=== PATIENT | female | born 1985 | race Caucasian/White ===

== ENCOUNTER 2017-08-12 20:46 | Emergency (ER) | payer OTHER ==
[2017-08-12 20:51] VITALS: BP 126/84; PULSE 71; TEMP 98.4; BMI 26.5
--- NOTE | 2017-08-12 21:55 | PDOC ---
History of Present Illness - General Chief Complaint: Laceration Stated Complaint: LEFT HAND LACERATION Time Seen by Provider: 08/12/17 21:28 History Source: Patient Exam Limitations: No Limitations - History of Present Illness Initial Comments: 08/12/17 21:49 This is a 32-year-old woman without past medical history of presents to the emergency room with 2 cm lactic to base of left thumb on the dorsal side. Patient states she got locked in the kitchen of her [employer] and while trying to open the door with a kitchen knife it slipped and accidentally cut her thumb. She wash her hands immediately after the injury. She states her last tetanus shot was 3 years ago with her primary doctor. Past History - Past Medical History Allergies/Adverse Reactions: Allergies Allergy/AdvReac Type Severity Reaction Status Date / Time No Known Allergies Allergy Verified 08/12/17 20:50 Home Medications: Ambulatory Orders Levothyroxine [Synthroid -] 175 mcg PO DAILY 09/17/12 Levothyroxine [Synthroid -] 175 mcg PO DAILY@0700 tablet 06/25/16 GI Disorders: Yes Thyroid Disease: Yes Other medical history: hht disease - Surgical History Cholecystectomy: Yes (04/30) - Reproductive History Spontaneous : 2 - Suicide/Smoking/Psychosocial Hx Smoking Status: No Smoking History: Never smoked Have you smoked in the past 12 months: No Number of Cigarettes Smoked Daily: 0 Hx Alcohol Use: No Drug/Substance Use Hx: No Substance Use Type: None *Physical Exam - Vital Signs Last Vital Signs Temp Pulse Resp BP Pulse Ox 98.4 F 71 18 126/84 99 08/12/17 20:48 08/12/17 20:48 08/12/17 20:48 08/12/17 20:48 08/12/17 20:48 Procedures - Laceration/Wound Repair Left Proximal Dorsal 1st digit Wound Length: to 2.5 cm Wound Explored: clean Wound's Depth, Shape: superficial, linear Irrigated w/ Saline: No Betadine Prep: Yes Anesthesia: 2% Lidocaine Amount of Anesthetic (ccs): 3 Wound Repaired With: Sutures Suture Size/Type: 5:0 Number of Sutures: 2 Layer Closure: No Sterile Dressing Applied: No Splint Applied: No Sling Applied: No Medical Decision Making - Medical Decision Making 08/12/17 21:52 This is a 32-year-old woman without past medical history of presents to the emergency room with 2 cm lactic to base of left thumb on the dorsal side. Patient states she got locked in the kitchen of her [employer] and while trying to open the door with a kitchen knife it slipped and accidentally cut her thumb. She wash her hands immediately after the injury. She states her last tetanus shot was 3 years ago with her primary doctor. 2 cm linear laceration to the dorsum of the base of left thumb present. The wound is superficial. No obvious debris was within the wound. Irrigated by while having patient wash her hands. Area prepped and anesthetized with 3 mL of 2% lidocaine. 2 sutures placed which obtained well approximated wound edges and wound closure. Patient is instructed to return to have sutures removed in one week. Patient instructed to return to care for any signs and symptoms of infection including erythema, fevers, discharge, increased pain at the site. Diagnosis-laceration *DC/Admit/Observation/Transfer Diagnosis at time of Disposition: Laceration - Discharge Dispostion Disposition: HOME Condition at time of disposition: Stable Admit: No - Referrals Referrals: Joshua Barlow MD [Primary Care Provider] - - Patient Instructions Printed Discharge Instructions: DI for Laceration Repair Additional Instructions: Keep wounds dry for the next 24 hours. After the first 24 hours she may clean the wound by gently rubbing and patting dry. You may use Neosporin to prevent infection. Apply a thin layer to wounds twice a day and as needed. Return to have sutures removed in one week. Return to emergency department for any fever, redness to laceration site, drainage or discharge from laceration site, increased pain, or any other concerns. Thank you very much for choosing us to provide your emergent healthcare needs.
== END 2017-08-12 21:57 | disposition home or self-care (01) ==
LOC: JERFT 20:46
PROC: 0HQGXZZ Repair Left Hand Skin, External Approach (ICD-10-PCS; principal; 2017-08-12)
DX: S61.012A Laceration without foreign body of left thumb without damage to nail, initial encounter (principal); W26.0XXA Contact with knife, initial encounter; Y93.89 Activity, other specified; Y92.22 Religious institution as the place of occurrence of the external cause; Y99.8 Other external cause status
CPT/HCPCS: 12001-25; 99281-25

== ENCOUNTER 2017-10-17 18:19 | Emergency (ER) | payer OTHER ==
[2017-10-17 18:37] VITALS: BP 123/80; PULSE 68; TEMP 98; BMI 25.8
--- NOTE | 2017-10-17 18:52 | PDOC ---
Rapid Medical Evaluation Chief Complaint: Pain, Acute Time Seen by Provider: 10/17/17 18:47 Medical Evaluation: Allergies Allergy/AdvReac Type Severity Reaction Status Date / Time No Known Allergies Allergy Verified 10/17/17 18:35 Vital Signs Temp Pulse Resp BP Pulse Ox 98 F 68 18 123/80 100 10/17/17 18:35 10/17/17 18:35 10/17/17 18:35 10/17/17 18:35 10/17/17 18:35 10/17/17 18:48 Pt presents to the ED: back pain and nausea Pt on brief exam: pt with nikki cva, VSS Pt ordered for : ua, ucx, hcg Pt to proceed to the ED Discharge Disposition - Diagnosis Back pain - Referrals - Patient Instructions - Post Discharge Activity
[2017-10-17 19:28] LABS: URINE APPEARANCE CLEAR; URINE BILIRUBIN NEGATIVE (NEGATIVE); URINE BLOOD 1+ (NEGATIVE); URINE COLOR YELLOW; URINE GLUCOSE (UA) NEGATIVE (NEGATIVE); URINE KETONE NEGATIVE (NEGATIVE); URINE LEUK ESTERASE NEGATIVE (NEGATIVE); URINE NITRITE NEGATIVE (NEGATIVE); URINE PROTEIN NEGATIVE (NEGATIVE)
[2017-10-17 19:39] LABS: URINE MUCUS RARE; URINE RBC 5 /hpf (0-3); URINE WBC <1 /hpf (3-5)
[2017-10-17 20:55] LABS: URINE LEUK ESTERASE Negative (NEGATIVE)
--- NOTE | 2017-10-17 21:42 | PDOC ---
History of Present Illness - General History Source: Patient - History of Present Illness Initial Comments: 10/17/17 22:19 The patient is a 32 year old female, with a significant past medical history of UTI (last 13 years ago), stroke (1 year ago), hypothyroidism (taking Synthroid s /p radiation therapy for hyperthyroidism), two small uterine fibroids, ovarian cysts, and s/p loop electrical excision procedure (LEEP), who presents to the emergency department with one week of lower back pain that radiates to her abdomen bilaterally, as well as pain to her suprapubic region and abdominal bloating. She states she became very nauseous today while at work and developed chills, but denies vomiting. The patient states she has not taken anything for pain and denies experiencing this pain in the past. She states her abdomen feels like there is air inside. Secondarily, she states she has low urinary output at baseline (urinates 2x in the day despite consuming large volumes of fluid). The patient states she was referred to a renal doctor, but denies follow -up with the specialist. LMP: 1 week ago (patient states she is not sexually active) She denies chest pain, shortness of breath, headache and dizziness. She denies fever, vomit, diarrhea and constipation. She denies dysuria, frequency, urgency and hematuria. Allergies: NKDA Past surgical history: cholecystectomy Social history: Pt denies toxic habits PCP: Dr. Joshua Barlow <Tresa Mason - Last Filed: 10/18/17 02:03> <Yannick Antonio - Last Filed: 10/18/17 02:34> - General Chief Complaint: Pain, Acute Stated Complaint: PAIN, ACUTE Time Seen by Provider: 10/17/17 18:47 Past History <Tresa Mason - Last Filed: 10/18/17 02:03> - Past Medical History COPD: No GI Disorders: Yes Thyroid Disease: Yes - Surgical History Cholecystectomy: Yes (04/30) - Reproductive History Spontaneous : 2 - Suicide/Smoking/Psychosocial Hx Smoking Status: No Smoking History: Never smoked Have you smoked in the past 12 months: No Number of Cigarettes Smoked Daily: 0 Information on smoking cessation initiated: No Hx Alcohol Use: No Drug/Substance Use Hx: No Substance Use Type: None <Yannick Antonio - Last Filed: 10/18/17 02:34> - Past Medical History Allergies/Adverse Reactions: Allergies Allergy/AdvReac Type Severity Reaction Status Date / Time No Known Allergies Allergy Verified 10/17/17 18:35 Home Medications: Ambulatory Orders Levothyroxine [Synthroid -] 175 mcg PO DAILY@0700 tablet 06/25/16 Review of Systems - Review of Systems Able to Perform ROS?: Yes Comments:: 10/17/17 22:20 CONSTITUTIONAL: (+) chills, No fever, no fatigue EYES: No visual changes ENT: No ear pain, no sore throat CARDIOVASCULAR: No chest pain, no palpitations RESPIRATORY: No cough, no SOB GI: (+) bilateral abdominal pain with increased prominence to suprapubic region , nausea, no vomiting, no constipation, no diarrhea GENITOURINARY: No dysuria, no frequency, no hematuria MUSKULOSKELETAL: No backpain, no joint pain, no myalgias SKIN: No rash NEURO: No headache <Tresa Mason - Last Filed: 10/18/17 02:03> *Physical Exam - Vital Signs Last Vital Signs Temp Pulse Resp BP Pulse Ox 98 F 68 18 123/80 100 10/17/17 18:35 10/17/17 18:35 10/17/17 18:35 10/17/17 18:35 10/17/17 18:35 - Physical Exam Comments: 10/17/17 22:21 CONSTITUTIONAL: (+) Awake, Alert, and Oriented x3. in no apparent distress HEAD: Normocephalic; atraumatic EYES: PERRL; EOM intact ENMT: External appears normal; normal oropharynx NECK: Supple; non-tender; no cervical lymphadenopathy CARD: Normal S1, S2; no murmurs, rubs, or gallops RESP: Normal chest excursion with respiration; breath sounds clear and equal bilaterally; no wheezes, rhonchi, or rales ABD: Soft, non-distended; +Tender to suprapubic region. No CVA tenderness. no palpable organomegaly, no palpable hernias EXT: Normal ROM in all four extremities; non-tender to palpation; distal pulses intact SKIN: Warm, dry, no rash NEURO: No focal neurological deficiencies. <Tresa Mason - Last Filed: 10/18/17 02:03> - Vital Signs Last Vital Signs Temp Pulse Resp BP Pulse Ox 98 F 68 18 123/80 100 10/17/17 18:35 10/17/17 18:35 10/17/17 18:35 10/17/17 18:35 10/17/17 18:35 <Yannick Antonio - Last Filed: 10/18/17 02:34> ED Treatment Course - LABORATORY CBC & Chemistry Diagram: 10/17/17 23:00 10/17/17 23:00 - ADDITIONAL ORDERS Additional order review: Laboratory Results 10/17/17 18:56 Urine Color Yellow Urine Appearance Clear Urine pH 6.0 Ur Specific [place] 1.025 Urine Protein Negative Urine Glucose (UA) Negative Urine Ketones Negative Urine Blood 1+ H Urine Nitrite Negative Urine Bilirubin Negative Urine Urobilinogen 2.0 H Ur Leukocyte Esterase Negative Urine WBC (Auto) <1 Urine RBC (Auto) 5 Ur Epithelial Cells Rare Urine Mucus Rare Urine HCG, Qual Negative - RADIOLOGY Radiograph Interpretation: 10/18/17 02:04 EXAM: ULTRASOUND PELVIS, COMPLETE AND TRANSVAGINAL ULTRASOUND AND DUPLEX SCAN PELVIS, COMPLETE No ovarian torsion. Color flow with appropriate arterial and venous waveforms. No free fluid. Normal uterus without visible fibroids. Endometrial stripe complex 9 mm thick. Unremarkable visualized portion of bladder. Aline Carlton M.D. 10/18/2017 01:59 EST <Tresa Mason - Last Filed: 10/18/17 02:03> - LABORATORY CBC & Chemistry Diagram: 10/17/17 23:00 10/17/17 23:00 - ADDITIONAL ORDERS Additional order review: Laboratory Results 10/17/17 18:56 Urine Color Yellow Urine Appearance Clear Urine pH 6.0 Ur Specific [place] 1.025 Urine Protein Negative Urine Glucose (UA) Negative Urine Ketones Negative Urine Blood 1+ H Urine Nitrite Negative Urine Bilirubin Negative Urine Urobilinogen 2.0 H Ur Leukocyte Esterase Negative Urine WBC (Auto) <1 Urine RBC (Auto) 5 Ur Epithelial Cells Rare Urine Mucus Rare Urine HCG, Qual Negative <Yannick Antonio - Last Filed: 10/18/17 02:34> Medical Decision Making - Medical Decision Making 10/18/17 01:51 IOC was called ([id number]) after 1 hr of the image being transmitted to IOC ( 00:54) without an official read from radiologist. The pharmaceutical service representative made 1 failed attempt at reaching the "on-Call". Upon 2nd attempt, I spoke another sales development representative who states she "will send a message to Dr. Carlton now" . Pelvic US pending read from [facility], assigned to radiologist, Aline Carlton, at 01: 52 <Tresa Mason - Last Filed: 10/18/17 02:03> - Medical Decision Making 10/18/17 02:32 Patient is a well-appearing 32-year-old female who presented to the ER complaining of lower abdominal pressure/pain for the past week radiating to the back bilaterally. On the day of arrival, pain was severe and patient developed an episode of nausea without vomiting/diarrhea/vaginal bleeding/dysuria/ hematuria. In the ER, patient is awake and alert, afebrile, hemodynamically stable. Serial abdominal evaluations reveal suprapubic discomfort only there is no tenderness at McBurney's point or CVA tenderness bilaterally. There is no paraspinal tenderness bilaterally there is no midline tenderness bilaterally patient is able to walk on her heels without any discomfort. I do not suspect cord compression at this time. Urinalysis reveals 5 RBCs per high-power field and transvaginal ultrasound shows no evidence of uterine fibroids or ovarian cyst/torsion. I do not suspect acute appendicitis or ovarian torsion at this time. Patient will be discharged with follow-up within next 12 hours with PMD further evaluation. <Yannick Antonio - Last Filed: 10/18/17 02:34> *DC/Admit/Observation/Transfer - Attestations Scribe Attestion: 10/17/17 22:22 Documentation prepared by Tresa Mason, acting as medical practitioners for Yannick Antonio MD <Tresa Mason - Last Filed: 10/18/17 02:03> - Attestations Physician Attestion: 10/18/17 02:31 The documentation was prepared by the scribe under my direct supervision. I have reviewed the documentation which correctly represents the findings, medical decision-making and critical action taken by me. <Yannick Antonio - Last Filed: 10/18/17 02:34> Diagnosis at time of Disposition: Abdominal pain Qualifiers: Abdominal location: lower abdomen, unspecified Qualified Code(s): R10.30 - Lower abdominal pain, unspecified - Discharge Dispostion Disposition: HOME Condition at time of disposition: Stable - Referrals Referrals: Joshua Barlow MD [Primary Care Provider] - - Patient Instructions Printed Discharge Instructions: DI for Abdominal Pain-Adult - Post Discharge Activity
[2017-10-17] MEDS ORDERED: traMADol HCL 50 MG TABLET PO ONE (22:18)
[2017-10-17] MEDS ORDERED: traMADol HCL 50 MG TABLET ONE (22:54)
[2017-10-17 23:11] LABS: BASO % 0.4 % (0-2.0); EOS # 0.3 # (0-4.5); EOS % 3.1 % (0-4.5); LYMPH # 2.7 (8-40); MCH 30.2 pg (25.7-33.7); MCHC 33.7 g/dl (32.0-36.0); MEAN CELL VOLUME 89.8 fl (80-96); MEAN PLT VOLUME 9.4 fl (7.5-11.1); MONO # 0.5 # (3.8-10.2); NEUT # 5.6 # (42.8-82.8); PLATELET COUNT 236 K/MM3 (134-434); RDW 13.8 % (11.6-15.6); WHITE BLOOD COUNT 9.1 K/mm3 (4.0-10.0)
[2017-10-17 23:27] LABS: ALBUMIN 3.8 g/dl (3.4-5.0); ANION GAP 11 (8-16); CO2 23 mmol/L (21-32); CREATININE 0.8 mg/dL (0.55-1.02); GLUCOSE,RANDOM 82 mg/dL (74-106); SGOT/AST 12 U/L (15-37); SGPT/ALT 15 U/L (12-78)
[2017-10-17 23:29] LABS: ALK PHOS 81 U/L (45-117); BILIRUBIN,TOTAL 0.5 mg/dL (0.2-1.0); TOT PROT 7.3 g/dl (6.4-8.2)
== END 2017-10-18 03:12 | disposition home or self-care (01) ==
LOC: JER 18:19
DX: R10.30 Lower abdominal pain, unspecified (principal); E03.9 Hypothyroidism, unspecified; Z86.73 Personal history of transient ischemic attack (TIA), and cerebral infarction without residual deficits; Z87.440 Personal history of urinary (tract) infections
CPT/HCPCS: 36415; 76830-TC; 80053; 81003; 81015; 83690; 84703; 85025; 87086; 99282-25

== ENCOUNTER 2018-02-26 13:30 | Emergency (ER) | payer OTHER ==
[2018-02-26 13:52] VITALS: BP 125/75; PULSE 60; TEMP 98.2; BMI 24.7
[2018-02-26] MEDS ORDERED: hydrOXYzine HCL 25 MG TABLET (FP) PO ONE ×2 (15:04→15:07)
--- NOTE | 2018-02-26 15:11 | PDOC ---
History of Present Illness - General Chief Complaint: Allergic Reaction Stated Complaint: WEAKNESS Time Seen by Provider: 02/26/18 14:26 History Source: Patient Exam Limitations: No Limitations - History of Present Illness Initial Comments: 02/26/18 15:33 32-year-old woman with past medical history of CVA presents emergency Department with itching to her entire body for 3 days. 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 This continued throughout the weekend despite intermittent use of Benadryl. Patient states she took one dose of OTC Milady which had minimal relief. Patient has been applying hydrocortisone cream to her body today which has improved itching. She denies any shortness of breath, tachycardia, nausea, vomiting, dizziness, shortness of breath. Past History - Past Medical History Allergies/Adverse Reactions: Allergies Allergy/AdvReac Type Severity Reaction Status Date / Time No Known Allergies Allergy Verified 02/26/18 13:47 Home Medications: Ambulatory Orders Levothyroxine [Synthroid -] 175 mcg PO DAILY@0700 tablet 06/25/16 hydrOXYzine HCL [Atarax -] 25 mg PO TID PRN #21 tablet 02/26/18 CVA: Yes (2015-NO RESIDUAL) COPD: No GI Disorders: Yes (CHOLECYSTECTOMY) Thyroid Disease: Yes (HYPO) - Surgical History Cholecystectomy: Yes (04/30) - Reproductive History Spontaneous : 2 - Suicide/Smoking/Psychosocial Hx Smoking Status: No Smoking History: Never smoked Have you smoked in the past 12 months: No Number of Cigarettes Smoked Daily: 0 Hx Alcohol Use: No Drug/Substance Use Hx: No Substance Use Type: None Review of Systems - Review of Systems Able to Perform ROS?: Yes Is the patient limited Serbian proficient: No Constitutional: No: Symptoms Reported HEENTM: No: Symptoms Reported Respiratory: No: Symptoms reported Cardiac (ROS): No: Symptoms Reported ABD/GI: No: Symptoms Reported : No: Symptoms Reported Musculoskeletal: No: Symptoms Reported Integumentary: Yes: See HPI Neurological: No: Symptoms reported Endocrine: No: Symptoms Reported *Physical Exam - Vital Signs Last Vital Signs Temp Pulse Resp BP Pulse Ox 98.2 F 60 19 125/75 100 02/26/18 13:47 02/26/18 13:47 02/26/18 13:47 02/26/18 13:47 02/26/18 13:47 - Physical Exam General Appearance: Yes: Appropriately Dressed. No: Apparent Distress HEENT: positive: Normal ENT Inspection Neck: positive: Trachea midline, Supple. negative: Stridor Respiratory/Chest: positive: Lungs Clear, Normal Breath Sounds. negative: Respiratory Distress, Accessory Muscle Use Cardiovascular: positive: Regular Rhythm, Regular Rate. negative: Murmur Gastrointestinal/Abdominal: positive: Normal Bowel Sounds, Soft. negative: Tender Musculoskeletal: positive: Normal Inspection. negative: CVA Tenderness Extremity: positive: Normal Inspection, Normal Range of Motion Integumentary: positive: Dry, Warm, Rash (Fine scattered maculopapular rash noted to trunk and face. Rash is worse to areas that are covered by her brassiere) Neurologic: positive: Alert, Normal Response Medical Decision Making - Medical Decision Making 02/26/18 15:36 A/P: 32-year-old with history of CVA with 3 days of fine rash to trunk and face Fine scattered pruritic maculopapular rash noted to trunk and face which is worse to areas under her brassiere Lungs clear to auscultation bilaterally No stridor auscultated No drooling present Oropharynx clear without erythema or edema. Uvula midline Patient with dermatitis I'll give the patient a prescription for Atarax. Patient is been referred to Dr. Cast for continued evaluation and potential ALLERGY testing *DC/Admit/Observation/Transfer Diagnosis at time of Disposition: Dermatitis - Discharge Dispostion Disposition: HOME Condition at time of disposition: Stable Decision to Admit order: No - Prescriptions Prescriptions: hydrOXYzine HCL [Atarax -] 25 mg PO TID PRN #21 tablet PRN Reason: itching - Referrals Referrals: Joshua Barlow MD [Primary Care Provider] - Bc Cast MD [Staff Physician] - - Patient Instructions Additional Instructions: Take Atarax as needed for itching. Take Benadryl all taken this medication. You may take [id number] Pepcid in addition to this medicine to help with itching. You have been given a recommendation to see Dr. Cast an ENT specialist. Please call for an appointment as soon as possible. Return to ER for any shortness of breath, dizziness, throat itching, feeling throat is closing or any other concerns. - Post Discharge Activity
== END 2018-02-26 15:47 | disposition home or self-care (01) ==
LOC: JERFT 13:30
DX: L25.9 Unspecified contact dermatitis, unspecified cause (principal); R21 Rash and other nonspecific skin eruption; L29.8 Other pruritus; E03.9 Hypothyroidism, unspecified; Z86.73 Personal history of transient ischemic attack (TIA), and cerebral infarction without residual deficits; Z90.49 Acquired absence of other specified parts of digestive tract
CPT/HCPCS: 99281-25

== ENCOUNTER 2018-12-05 09:43 | Emergency (ER) | payer OTHER ==
[2018-12-05 09:57] VITALS: BP 118/55; PULSE 62; TEMP 98.5; BMI 26.2
[2018-12-05] MEDS ORDERED: ACETAMINOPHEN 500 MG TABLET (FP) PO ONE (10:49)
[2018-12-05] MEDS ORDERED: ACETAMINOPHEN 500 MG TABLET (FP) ONE (10:52)
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
== END 2018-12-05 11:39 | disposition home or self-care (01) ==
LOC: JERFT 09:43
DX: S46.912A Strain of unspecified muscle, fascia and tendon at shoulder and upper arm level, left arm, initial encounter (principal); M25.562 Pain in left knee; X58.XXXA Exposure to other specified factors, initial encounter; Y93.89 Activity, other specified; Y92.89 Other specified places as the place of occurrence of the external cause
CPT/HCPCS: 73562-TC-LT-FY; 99281-25

== ENCOUNTER 2018-12-10 11:04 | Inpatient (IN) | payer OTHER ==
[2018-12-10 11:19] VITALS: BMI 24.7
--- NOTE | 2018-12-10 11:40 | PDOC ---
Attending Attestation - Resident Resident Name: Augustine Mcnamara - ED Attending Attestation I have performed the following: I have examined & evaluated the patient, The case was reviewed & discussed with the resident, I agree w/resident's findings & plan, Exceptions are as noted - HPI HPI: 33 yo F hx CVA presents with L sided numbness since waking up this morning. She states she had a prior CVA in 2016, etiology was never found. She states she woke up with tingling to her whole left side, similar to her last CVA. Denies headache, weakness, speech changes. Last at baseline when she went to sleep last night. - Physicial Exam PE: GENERAL: Awake, alert, and fully oriented, in no acute distress HEAD: No signs of trauma EYES: PERRLA, EOMI, sclera anicteric, conjunctiva clear ENT: Auricles normal inspection, hearing grossly normal, nares patent, oropharynx clear without exudates. Moist mucosa NECK: Normal ROM, supple, no lymphadenopathy, JVD, or masses LUNGS: Breath sounds equal, clear to auscultation bilaterally. No wheezes, and no crackles HEART: Regular rate and rhythm, normal S1 and S2, no murmurs, rubs or gallops ABDOMEN: Soft, nontender, normoactive bowel sounds. No guarding, no rebound. No masses EXTREMITIES: Normal range of motion, no edema. No clubbing or cyanosis. No cords, erythema, or tenderness NEUROLOGICAL: Cranial nerves II through XII grossly intact. Normal speech, normal gait. Motor intact. Dec sensation to pinprick entire left side. SKIN: Warm, Dry, normal turgor, no rashes or lesions noted. - Medical Decision Making 12/10/18 11:49 Pt with prior history of CVA, woke up with L-sided numbness this morning. Unknown time of onset, therefore code boateng not called. Patient taken straight to [facility]. Will d/w Dr. Aceves, as he saw her for the prior CVA.
--- NOTE | 2018-12-10 11:46 | PDOC ---
History of Present Illness - General Chief Complaint: CVA/TIA Stated Complaint: LEFT SIDE NUMBNESS Time Seen by Provider: 12/10/18 11:21 - History of Present Illness Initial Comments: 33 year old female with PMH of CVA (2016 with no residual deficits) but occasional left sided pains presenting with left arm, face, and left leg paresthesias since waking up this morning at 6:00 AM. States that her last known well was yesterday evening at 23:00. Patient denies any other medical history but was told that her pressure was high in the past but never was treated with medication. Dr. Aceves had seen her in the past for her previous stroke in 2016. She does have a history of migraines in the past with aura and occasional right sided symptoms but denies any recent migraines. Denies any nausea, vomiting, fevers, chills, headache. 12/10/18 13:03 tPA Exclusion checklist 3-4.5h - Time Elapsed Date last known well: 12/09/18 Time last known well: 23:00 Elaspsed time: Day(s) and 17 Hour(s) and 31 Minutes - Thrombolytic Therapy Candidate Is patient eligible for thrombolytic therapy: No - Ineligibility reason(s) Reasons No tPA given: Outside of window - delayed arrival NIH Stroke Scale - Last Known Well Date/Time & Onset Date Last Known Well: 12/09/18 Time Last Known Well: 23:00 - Initial Evaluation Level of consciousness: Alert Ask patient the month and their age: Answers both correctly Ask patient to open & close eyes; make fist and let go: Obeys both correctly Best gaze (horizontal eye movement): Normal Visual field testing: No visual field loss Facial paresis (Show teeth/raise eyebrows/close eyes tight): Normal symmetrical movement Motor Function: Left Arm: Normal Motor Function: Right Arm: Normal (extends arm 90 (or 45) degrees for 10 seconds without drift Motor Function: Left Leg: Normal (extends leg 30 degrees for 5 seconds without drift) Motor Function: Right Leg: Normal (extends leg 30 degrees for 5 seconds without drift) Limb Ataxia: Untestable (Joint fused or limb amputated), explain: (Right leg gine but left knee pain limiting left leg exam) Sensory(Use pinprick test arms,legs,trunk,face/side to side): Mild to moderate decrease in sensation Best language (Describe picture, name items, read sentences): No Aphasia Dysarthria (read several words): Normal articulation Extinction and Inattention: No abnormality - Total Score NIH Stroke Scale Score: 1 Past History - Past Medical History Allergies/Adverse Reactions: Allergies Allergy/AdvReac Type Severity Reaction Status Date / Time No Known Allergies Allergy Verified 12/05/18 09:57 Home Medications: Ambulatory Orders Methocarbamol [Robaxin -] 500 mg PO TID PRN #21 tablet 12/05/18 Methylprednisolone [Medrol Dose Solitario] 4 mg PO ASDIR #21 tablet 12/05/18 CVA: Yes (2015-NO RESIDUAL) COPD: No GI Disorders: Yes (CHOLECYSTECTOMY) Thyroid Disease: Yes (HYPO) - Surgical History Cholecystectomy: Yes (04/30) - Reproductive History Spontaneous : 2 - Suicide/Smoking/Psychosocial Hx Smoking Status: No Smoking History: Never smoked Have you smoked in the past 12 months: No Number of Cigarettes Smoked Daily: 0 Hx Alcohol Use: No Drug/Substance Use Hx: No Substance Use Type: None Review of Systems - Review of Systems Constitutional: No: Chills, Diaphoresis, Fever, Loss of Appetite HEENTM: No: Blurred Vision, Tearing Respiratory: No: Cough, Orthopnea, Shortness of Breath Cardiac (ROS): No: Chest Pain, Edema, Irregular Heart Rate ABD/GI: No: Constipated, Nausea, Vomiting : No: Dysuria, Discharge Musculoskeletal: Yes: Muscle Weakness Integumentary: No: Bruising, Lesions, Lumps Neurological: Yes: Paresthesia, Tingling, Weakness. No: Headache, Numbness Psychiatric: No: Anxiety, Depression Hematologic/Lymphatic: No: Anemia, Blood Clots, Easy Bleeding *Physical Exam - Vital Signs Last Vital Signs Temp Pulse Resp BP Pulse Ox 98.4 F 81 18 124/84 98 12/10/18 11:16 12/10/18 11:16 12/10/18 11:16 12/10/18 11:16 12/10/18 11:16 - Physical Exam General Appearance: Yes: Nourished, Appropriately Dressed. No: Apparent Distress HEENT: positive: EOMI, SOLE, Normal ENT Inspection, Normal Voice Neck: positive: Trachea midline, Normal Thyroid, Supple. negative: Tender, Rigid Moderate Sedation - Procedure Monitoring Vital Signs: Procedure Monitoring Vital Signs Temperature 98.4 F 12/10/18 11:16 Pulse Rate 81 12/10/18 11:16 Respiratory Rate 18 12/10/18 11:16 Blood Pressure 124/84 12/10/18 11:16 O2 Sat by Pulse Oximetry (%) 98 12/10/18 11:16 ED Treatment Course - LABORATORY CBC & Chemistry Diagram: 12/10/18 12:07 12/10/18 12:07 - RADIOLOGY Radiology Studies Ordered: Category Date Time Status HEAD CT (STROKE) [CT] Stat CT Scan 12/10/18 11:44 Ordered *DC/Admit/Observation/Transfer Diagnosis at time of Disposition: Cerebrovascular accident (CVA) - Referrals - Patient Instructions - Post Discharge Activity
[2018-12-10 12:18] LABS: BASO % 0.5 % (0-2.0); EOS % 1.3 % (0-4.5); HEMATOCRIT 43.1 % (32.4-45.2); HEMOGLOBIN 14.9 GM/dL (10.7-15.3); LYMPH % 32.8 % (8-40); MCH 31.5 pg (25.7-33.7); MCHC 34.6 g/dl (32.0-36.0); MEAN CELL VOLUME 91.1 fl (80-96); MEAN PLT VOLUME 9.4 fl (7.5-11.1); MONO % 5.8 % (3.8-10.2); NEUT % 59.6 % (42.8-82.8); PLATELET COUNT 234 K/MM3 (134-434); RBC 4.73 M/mm3 (3.60-5.2); RDW 13.9 % (11.6-15.6); WHITE BLOOD COUNT 5.6 K/mm3 (4.0-10.0)
[2018-12-10 12:31] LABS: INR 1.03 (0.83-1.09); PROTHROMBIN TIME (PATIENT) 12.2 SEC (9.7-13.0)
[2018-12-10] MEDS: SODIUM CHLORIDE 1,000 ML IV SCH (12:35)
[2018-12-10 12:59] LABS: ALBUMIN 3.7 g/dl (3.4-5.0); ALK PHOS 77 U/L (45-117); ANION GAP 8 MMOL/L (8-16); BILIRUBIN,TOTAL 0.7 mg/dL (0.2-1); BLOOD UREA NITROGEN 14 mg/dL (7-18); CALCIUM 8.9 mg/dL (8.5-10.1); CHLORIDE 108 mmol/L (98-107); CHOLESTEROL 170 mg/dL (50-200); CO2 25 mmol/L (21-32); CREATININE 0.8 mg/dL (0.55-1.3); GLUCOSE,RANDOM 75 mg/dL (74-106); HDL CHOLESTEROL 61 mg/dL (40-60); POTASSIUM 4.3 mmol/L (3.5-5.1); SGOT/AST 20 U/L (15-37); SGPT/ALT 12 U/L (13-61); SODIUM 140 mmol/L (136-145); TOT PROT 7.3 g/dl (6.4-8.2); TRIGLYCERIDES 94 mg/dL (0-150)
--- NOTE | 2018-12-10 13:51 | EKG ---
Test Reason : Blood Pressure : / mmHG Vent. Rate : 060 BPM Atrial Rate : 060 BPM P-R Int : 130 ms QRS Dur : 092 ms QT Int : 418 ms P-R-T Axes : 054 049 025 degrees QTc Int : 418 ms NORMAL SINUS RHYTHM INCOMPLETE RIGHT BUNDLE BRANCH BLOCK BORDERLINE ECG WHEN COMPARED WITH ECG OF 22-JUN-2016 10:08, NO SIGNIFICANT CHANGE WAS FOUND Confirmed by SILVIA YEE MD ([id number]) on 12/10/2018 1:51:31 PM Referred By: Confirmed By:SILVIA YEE MD
[2018-12-11 00:01] LABS: URINE APPEARANCE CLEAR; URINE BILIRUBIN NEGATIVE (<2.0 mg/dL); URINE COLOR YELLOW; URINE GLUCOSE (UA) NEGATIVE (NEGATIVE); URINE KETONE NEGATIVE (NEGATIVE); URINE LEUK ESTERASE NEGATIVE (NEGATIVE); URINE NITRITE NEGATIVE (NEGATIVE); URINE PROTEIN NEGATIVE (NEGATIVE); URINE UROBILINOGEN NEGATIVE mg/dL (0.2-1.0)
[2018-12-11 06:29] LABS: BASO % 0.2 % (0-2.0); EOS % 2.1 % (0-4.5); HEMATOCRIT 38.4 % (32.4-45.2); HEMOGLOBIN 13.3 GM/dL (10.7-15.3); LYMPH % 30.3 % (8-40); MCH 31.4 pg (25.7-33.7); MCHC 34.5 g/dl (32.0-36.0); MEAN PLT VOLUME 9.3 fl (7.5-11.1); MONO % 7.1 % (3.8-10.2); NEUT % 60.3 % (42.8-82.8); PLATELET COUNT 211 K/MM3 (134-434); RBC 4.22 M/mm3 (3.60-5.2); RDW 14.1 % (11.6-15.6); WHITE BLOOD COUNT 6.3 K/mm3 (4.0-10.0)
[2018-12-11 07:48] LABS: BLOOD UREA NITROGEN 17 mg/dL (7-18); CREATININE 0.8 mg/dL (0.55-1.3); GLUCOSE,RANDOM 83 mg/dL (74-106); SODIUM 140 mmol/L (136-145)
[2018-12-11 07:49] LABS: ALBUMIN 3.4 g/dl (3.4-5.0); ANION GAP 7 MMOL/L (8-16); BILIRUBIN,TOTAL 1.2 mg/dL (0.2-1); CALCIUM 8.2 mg/dL (8.5-10.1); CHLORIDE 107 mmol/L (98-107); CHOLESTEROL 159 mg/dL (50-200); CO2 26 mmol/L (21-32); HDL CHOLESTEROL 52 mg/dL (40-60); LDL CHOLESTEROL (ONLY DFH) 89 mg/dl (5-100); SGOT/AST 12 U/L (15-37); SGPT/ALT 10 U/L (13-61); TOT PROT 6.6 g/dl (6.4-8.2); TRIGLYCERIDES 88 mg/dL (0-150)
[2018-12-11 07:50] LABS: ALK PHOS 68 U/L (45-117)
--- NOTE | 2018-12-11 09:10 | CON.CARD ---
Consult Consult Specialty:: Cardiology Referred by:: Dr. Shrestha Reason for Consultation:: Possible CVA - History of Present Illness Chief Complaint: Transient left facial tingling, Left shoulder pain w/ movement , left knee pain History of Present Illness: 33F with PMH "CVA" 2016 now presents to ER w/ a several complaints including: Transient left facial tingling, left shoulder pain with movement of arm, left knee pain. Denies visual changes, slurred speech, palpitations, chest pain, SOB. MRI brain negative. 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) Cardio/Vascular: No: AFIB, Aneurysm, Aortic Insufficiency, Aortic Stenosis, CAD , CHF, Deep Vein Thrombosis, HTN, Hyperlipdemia, ND, Mitral Insufficiency, Mitral Stenosis, Murmur, Pulmonary Hypertension, Other Pulmonary: No: Asthma, Bronchitis, Cancer, COPD, O2 Dependent, Pneumonia, Previously Intubated, Pulmonary Embolus, Pulmonary Fibrosis, Sleep Apnea, Other Gastrointestinal: No: Ascites, Cancer, Constipation, Crohn's Disease, Diverticulitis, Diverticulosis, Esophageal Varices, Gastritis, GERD, GI Bleed, Hemorrhoids, Hiatal Hernia, Inflamatory Bowel Disease, Irritable Bowel Disease, Pancreatitis, Peptic Ulcer Disease, Ulcerative Colitis, Other Hepatobiliary: No: Cirrhosis, Cholelithiasis, Cholecystitis, Choledocholithiasis , Hepatitis A, Hepatitis B, Hepatitis C, Other Renal/: No: Renal Failure, Renal Inusuff, BPH, Cancer, Hematuria, Hemodialysis , Neurogenic Bladder, Renal Calculi, UTI, Other Reproductive: No: Ectopic , Endometriosis, Fibroids, PID, Polycystic Ovary Syndrome, Postmenopausal, Other ...LMP: 06/04/16 Heme/Onc: No: Anemia, B12 Deficiency, Bleeding Disorder, Cancer, Current Chemotherapy, Current Radiation Therapy, Hemochromatosis, Hypercoaguable State, Myeloproliferative Synd, Sickle Cell Disease, Sickle Cell Trait, Thrombocytopenia, Other Infectious Disease: No: AIDS, C-Diff, Herpes Zoster, HIV, MRSA, STD's, Tuberculosis, VREF, Other Psych: No: Addictions, Anxiety, Bipolar, Depression, Panic, Psychosis, Schizophrenia, Other Musculoskeletal: No: Bursitis, Chronic low back pain, Hemiparesis, Hemiplegia, Osteoarthritis, Paraplegia, Other Rheumatology: No: Fibromyalgia, Gout, Lupus, Rheumatoid Arthritis, Sarcoidosis, Vasculitis, Other ENT: No: Allergic Rhinitis, Sinusitis, Other Endocrine: Yes: Hypothyroidism - Past Surgical History Past Surgical History: Yes: Cholecystectomy (2008) - Alcohol/Substance Use Hx Alcohol Use: No - Smoking History Smoking history: Never smoked Have you smoked in the past 12 months: No Aproximately how many cigarettes per day: 0 - Social History History of Recent Travel: No Home Medications - Allergies Allergies/Adverse Reactions: Allergies Allergy/AdvReac Type Severity Reaction Status Date / Time No Known Allergies Allergy Verified 12/05/18 09:57 - Home Medications Home Medications: Ambulatory Orders Methocarbamol [Robaxin -] 500 mg PO TID PRN #21 tablet 12/05/18 Methylprednisolone [Medrol Dose Solitario] 4 mg PO ASDIR #21 tablet 12/05/18 Family Disease History - Family Disease History Family History: Unremarkable (no early CAD or SCD) Review of Systems Findings/Remarks: ER HPI reviewed: " 33 yo F hx CVA presents with L sided numbness since waking up this morning. She states she had a prior CVA in 2016, etiology was never found. She states she woke up with tingling to her whole left side, similar to her last CVA. Denies headache, weakness, speech changes. Last at baseline when she went to sleep last night. " - Review of Systems Constitutional: reports: No Symptoms Eyes: reports: No Symptoms HENT: reports: No Symptoms Neck: reports: No Symptoms Cardiovascular: reports: No Symptoms Respiratory: reports: No Symptoms Gastrointestinal: reports: No Symptoms Genitourinary: reports: No Symptoms Neurological: reports: Parasthesia Endocrine: reports: No Symptoms Hematology/Lymphatic: reports: No Symptoms Psychiatric: reports: No Symptoms - Risk Factors Known Risk Factors: Yes: Prior ND /Emb Stroke, Other (by report prior CVA 2016) Vital Signs: Vital Signs Temperature 97.9 F 12/11/18 06:32 Pulse Rate 52 L 12/11/18 06:32 Respiratory Rate 18 12/11/18 06:32 Blood Pressure 130/73 12/11/18 06:32 O2 Sat by Pulse Oximetry (%) 99 12/11/18 06:32 Constitutional: Yes: No Distress, Calm Eyes: Yes: Conjunctiva Clear, EOM Intact HENT: Yes: Atraumatic, Normocephalic Neck: Yes: Supple, Trachea Midline Respiratory: Yes: Regular, CTA Bilaterally Gastrointestinal: Yes: Soft Cardiovascular: Yes: Regular Rate and Rhythm JVD: No Carotid Bruit: No PMI: Non-Displaced Heart Sounds: Yes: S1, S2 (RRR, no m/r/g) Edema: No Peripheral Pulses WNL: Yes Neurological: Yes: Alert, Oriented, Other (grossly nonfocal) Psychiatric: Yes: WNL - Other Data Labs, Other Data: CBC, BMP 12/11/18 06:05 12/11/18 06:05 INR, PTT INR 1.03 (0.83-1.09) 12/10/18 12:07 Troponin, BNP 12/10/18 12:07 Troponin I < 0.02 Troponin, BNP 12/10/18 12:07 Troponin I < 0.02 NSR, inc RBBB Echo: Pending Ejection Fraction %: LVEF > or = 40 % Imaging - Results Cat Scan: Report Reviewed MRI: Report Reviewed EKG: Image Reviewed Problem List - Problems (1) Arm paresthesia, left Code(s): R20.2 - PARESTHESIA OF SKIN (2) Hypothyroid Code(s): E03.9 - HYPOTHYROIDISM, UNSPECIFIED Qualifiers: Hypothyroidism type: unspecified Qualified Code(s): E03.9 - Hypothyroidism , unspecified Assessment/Plan IMP: Transient facial parasthesia, normal MRI Arthritic pain left shoulder, knee Suspect parasthesia probably due to Cervical radiculopathy REC: 1. Neuro eval 2. Echo 3. Carotid US will follow.
--- NOTE | 2018-12-11 09:48 | CONSULT ---
Consult - text type - Consultation Consultation Note: Neurology History of Present Illness 33 year old female with PMH of CVA (2016 with no residual deficits) but occasional left sided pains presented with left arm, face, and left leg paresthesias since waking up the morning of admission at 6:00 AM. She is known to me from prior hospitalization and outpatient visits. She had MRI brain in 2016 which showed acute R frontoparietal infarct. CT head completed and reviewed , without acute changes. MRI repeated for this visit and no acute changes noted. She does also have history of cervical radiculopathy which may be playing a role as well vs complicated migraine. Discussed results with patient who was reassured and plan is for outpatient follow up. Past History - Past Medical History Allergies/Adverse Reactions: Allergies Allergy/AdvReac Type Severity Reaction Status Date / Time No Known Allergies Allergy Verified 12/05/18 09:57 Home Medications: Ambulatory Orders Methocarbamol [Robaxin -] 500 mg PO TID PRN #21 tablet 12/05/18 Methylprednisolone [Medrol Dose Solitario] 4 mg PO ASDIR #21 tablet 12/05/18 CVA: Yes (2016-NO RESIDUAL) COPD: No GI Disorders: Yes (CHOLECYSTECTOMY) Thyroid Disease: Yes (HYPO) - Surgical History Cholecystectomy: Yes (04/30) - Reproductive History Spontaneous : 2 - Suicide/Smoking/Psychosocial Hx Smoking Status: No Smoking History: Never smoked Have you smoked in the past 12 months: No Number of Cigarettes Smoked Daily: 0 Hx Alcohol Use: No Drug/Substance Use Hx: No Substance Use Type: None Review of Systems - Review of Systems Constitutional: No: Chills, Diaphoresis, Fever, Loss of Appetite HEENTM: No: Blurred Vision, Tearing Respiratory: No: Cough, Orthopnea, Shortness of Breath Cardiac (ROS): No: Chest Pain, Edema, Irregular Heart Rate ABD/GI: No: Constipated, Nausea, Vomiting : No: Dysuria, Discharge Musculoskeletal: Yes: Muscle Weakness Integumentary: No: Bruising, Lesions, Lumps Neurological: Yes: Paresthesia, Tingling, Weakness. No: Headache, Numbness Psychiatric: No: Anxiety, Depression Hematologic/Lymphatic: No: Anemia, Blood Clots, Easy Bleeding *Physical Exam - Vital Signs Last Vital Signs Temp Pulse Resp BP Pulse Ox 98.4 F 81 18 124/84 98 12/10/18 11:16 12/10/18 11:16 12/10/18 11:16 12/10/18 11:16 12/10/18 11:16 Gen: Awake, alert, responds to questions Card: RRR, nml S1,S2 Resp: Normal symmetric effort, lungs clear to auscultation Abdomen: Soft, nontender, bowel sounds active Musculoskeletal: Adequate range of motion without significant deformity Head atraumatic and normocephalic CN: PERRL, EOMI intact, no apparent facial droop, no abnormalities in facial sensation, palate elevates, uvula and tongue midline Motor: Full strength to confrontation in upper and lower extermities proximally and distally. Tone normal throughout Sensory: Intact to Temperature, light touch, and pinprick in all extremities Reflexes: 2+ biceps, brachioradialis, patellar, achillies Coordination: Intact on [id number] testing CBCD WBC 6.3 K/mm3 (4.0-10.0) 12/11/18 06:05 RBC 4.22 M/mm3 (3.60-5.2) 12/11/18 06:05 Hgb 13.3 GM/dL (10.7-15.3) 12/11/18 06:05 Hct 38.4 % (32.4-45.2) 12/11/18 06:05 MCV 91.0 fl (80-96) 12/11/18 06:05 MCHC 34.5 g/dl (32.0-36.0) 12/11/18 06:05 RDW 14.1 % (11.6-15.6) 12/11/18 06:05 Plt Count 211 K/MM3 (134-434) 12/11/18 06:05 MPV 9.3 fl (7.5-11.1) 12/11/18 06:05 CMP Sodium 140 mmol/L (136-145) 12/11/18 06:05 Potassium 4.0 mmol/L (3.5-5.1) 12/11/18 06:05 Chloride 107 mmol/L (98-107) 12/11/18 06:05 Carbon Dioxide 26 mmol/L (21-32) 12/11/18 06:05 Anion Gap 7 MMOL/L (8-16) L 12/11/18 06:05 BUN 17 mg/dL (7-18) 12/11/18 06:05 Creatinine 0.8 mg/dL (0.55-1.3) 12/11/18 06:05 Creat Clearance w eGFR > 60 (>60) 12/11/18 06:05 Random Glucose 83 mg/dL (74-106) 12/11/18 06:05 Calcium 8.2 mg/dL (8.5-10.1) L 12/11/18 06:05 Total Bilirubin 1.2 mg/dL (0.2-1) H 12/11/18 06:05 AST 12 U/L (15-37) L 12/11/18 06:05 ALT 10 U/L (13-61) L 12/11/18 06:05 Alkaline Phosphatase 68 U/L (45-117) 12/11/18 06:05 Total Protein 6.6 g/dl (6.4-8.2) 12/11/18 06:05 Albumin 3.4 g/dl (3.4-5.0) 12/11/18 06:05 CARDIAC ENZYMES Creatine Kinase 75 U/L (26-192) 12/10/18 12:07 Troponin I < 0.02 ng/ml (0.00-0.05) 12/10/18 12:07 Plan: 33 year old female with PMH of CVA (2016 with no residual deficits) but occasional left sided pains presented with left arm, face, and left leg paresthesias since waking up the morning of admission at 6:00 AM. She is known to me from prior hospitalization and outpatient visits. She had MRI brain in 2016 which showed acute R frontoparietal infarct. CT head completed and reviewed , without acute changes. MRI repeated for this visit and no acute changes noted. She does also have history of cervical radiculopathy which may be playing a role as well vs complicated migraine. Cognitive rest recommended, neurologically at baseline without deficits. Discussed results with patient who was reassured and plan is for outpatient follow up.
--- NOTE | 2018-12-11 11:59 | HP ---
Admitting History and Physical - Admission History of Present Illness: Pt is a 33 y/o female with PMH significant for CVA (2016 with no residual deficits), migraine LUIS's and hypothyroidism. Pt presented to the ER bc of paresthesias since waking up this morning at 6:00 AM. The paresthesias are on lt side of face and Lt side of her body including arms and legs. 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: Yes: CVA (reported CVA 2015), Migraine ...LMP: 06/04/16 Endocrine: Yes: Hypothyroidism - Past Surgical History Past Surgical History: Yes: Cholecystectomy (2008) - Smoking History Smoking history: Never smoked Have you smoked in the past 12 months: No Aproximately how many cigarettes per day: 0 - Alcohol/Substance Use Hx Alcohol Use: No - Social History History of Recent Travel: No Home Medications - Allergies Allergies/Adverse Reactions: Allergies Allergy/AdvReac Type Severity Reaction Status Date / Time No Known Allergies Allergy Verified 12/05/18 09:57 - Home Medications Home Medications: Ambulatory Orders Levothyroxine [Synthroid -] 150 mcg PO DAILY 12/11/18 Family Disease History - Family Disease History Family History: Unremarkable Review of Systems - Review of Systems Constitutional: reports: Weakness Eyes: reports: No Symptoms HENT: reports: No Symptoms Neck: reports: No Symptoms Cardiovascular: reports: No Symptoms Respiratory: reports: No Symptoms Gastrointestinal: reports: No Symptoms Genitourinary: reports: No Symptoms Physical Examination Vital Signs: Vital Signs Temperature 97.9 F 12/11/18 06:32 Pulse Rate 52 L 12/11/18 06:32 Respiratory Rate 18 12/11/18 06:32 Blood Pressure 130/73 12/11/18 06:32 O2 Sat by Pulse Oximetry (%) 99 12/11/18 06:32 Constitutional: Yes: Well Nourished HENT: Yes: WNL Neck: Yes: WNL, Supple Cardiovascular: Yes: WNL, Regular Rate and Rhythm Respiratory: Yes: WNL, Regular, CTA Bilaterally Gastrointestinal: Yes: WNL, Normal Bowel Sounds, Soft Musculoskeletal: Yes: WNL Extremities: Yes: WNL Edema: No Neurological: Yes: WNL, Alert, Oriented ...Motor Strength: WNL Labs: CBC, BMP 12/11/18 06:05 12/11/18 06:05 Problem List - Problems (1) Paresthesia Assessment/Plan: Admit to tele Check echo/carotid doppler MRI brain pending Neuro/cardio consults Code(s): R20.2 - PARESTHESIA OF SKIN (2) Hypothyroid Assessment/Plan: Cont levothyroxine Code(s): E03.9 - HYPOTHYROIDISM, UNSPECIFIED Qualifiers: Hypothyroidism type: unspecified Qualified Code(s): E03.9 - Hypothyroidism , unspecified (3) Cerebrovascular accident (CVA) Assessment/Plan: No residual deficits from 2016 Code(s): I63.9 - CEREBRAL INFARCTION, UNSPECIFIED
[2018-12-11] MEDS: SODIUM CHLORIDE 1,000 ML IV SCH (12:48)
[2018-12-11 18:42] VITALS: BP 116/65; PULSE 61; TEMP 97.8
== END 2018-12-11 18:58 | disposition home or self-care (01) | DRG 48 ==
LOC: JER 11:04 → JERBED 13:47 → J4S 12-11 13:07
PROVIDERS: ADMIT Internal Medicine; ATTEND Internal Medicine
DX: M54.12 Radiculopathy, cervical region (principal); E03.9 Hypothyroidism, unspecified; Z86.73 Personal history of transient ischemic attack (TIA), and cerebral infarction without residual deficits; R20.2 Paresthesia of skin; G43.909 Migraine, unspecified, not intractable, without status migrainosus
CPT/HCPCS: 36415; 70450-TC; 70551-TC; 80053; 80061; 81003; 82465; 82550; 83718; 83721; 84478; 84484; 85025; 85610; 86850; 86900; 86901; 93005; 93010; 93880-TC; 99284-25; J7030

== ENCOUNTER 2019-01-20 20:17 | Emergency (ER) | payer OTHER ==
[2019-01-20 20:36] VITALS: BP 123/72; PULSE 78; TEMP 98.6; BMI 25.0
--- NOTE | 2019-01-20 20:57 | PDOC ---
History of Present Illness - General Chief Complaint: Diarrhea Stated Complaint: DIARRHEA Time Seen by Provider: 01/20/19 20:57 - History of Present Illness Initial Comments: 01/20/19 21:24 33f with no pmh presents to the Ed for diarrhea for the past 2 days with incontinence. On Monday she describes drinking a fresh fruit and almond milk shake in a stand, feeling abdominal pain afterwards followed by foul- smelling, yellow watery diarrhea up to 7 times a day with urgency, incontinence that often feels like passing gas but turns out to be stool. Is hungry despite feeling somewhat nauseous. Has not vomited. No subjective fever. Past History - Past Medical History Allergies/Adverse Reactions: Allergies Allergy/AdvReac Type Severity Reaction Status Date / Time No Known Allergies Allergy Verified 01/20/19 20:33 Home Medications: Ambulatory Orders Levothyroxine [Synthroid -] 150 mcg PO DAILY 12/11/18 Loperamide HCl [Imodium -] 2 mg PO Q8H #21 capsule 01/20/19 Anemia: No Asthma: No Cancer: No Cardiac Disorders: No CVA: Yes (2015-NO RESIDUAL) COPD: No CHF: No Dementia: No Diabetes: No GI Disorders: Yes (CHOLECYSTECTOMY) Disorders: No HTN: No Hypercholesterolemia: No Liver Disease: No Seizures: No Thyroid Disease: Yes (HYPO) - Surgical History Cholecystectomy: Yes (04/30) - Reproductive History Spontaneous : 2 - Suicide/Smoking/Psychosocial Hx Smoking Status: No Smoking History: Never smoked Have you smoked in the past 12 months: No Number of Cigarettes Smoked Daily: 0 Information on smoking cessation initiated: No Hx Alcohol Use: No Drug/Substance Use Hx: No Substance Use Type: None Hx Substance Use Treatment: No Review of Systems - Review of Systems Able to Perform ROS?: Yes Is the patient limited Malaysian proficient: No Constitutional: No: Diaphoresis, Fever, Loss of Appetite HEENTM: No: Symptoms Reported Respiratory: No: Symptoms reported Cardiac (ROS): No: Symptoms Reported ABD/GI: Yes: See HPI : No: Burning, Dysuria, Discharge Musculoskeletal: No: Symptoms Reported Integumentary: No: Symptoms Reported Neurological: No: Symptoms reported All Other Systems: Reviewed and Negative *Physical Exam - Vital Signs Last Vital Signs Temp Pulse Resp BP Pulse Ox 98.6 F 78 18 123/72 98 01/20/19 20:33 01/20/19 20:33 01/20/19 20:33 01/20/19 20:33 01/20/19 20:33 - Physical Exam General Appearance: Yes: Nourished, Appropriately Dressed. No: Apparent Distress HEENT: positive: EOMI, SOLE, Normal ENT Inspection Respiratory/Chest: positive: Lungs Clear, Normal Breath Sounds. negative: Chest Tender, Respiratory Distress Cardiovascular: positive: Regular Rhythm, Regular Rate, S1, S2 Gastrointestinal/Abdominal: positive: Flat, Soft, Increased Bowel Sounds. negative: Tender Musculoskeletal: positive: Normal Inspection Extremity: positive: Normal Capillary Refill, Normal Inspection, Normal Range of Motion Neurologic: positive: Fully Oriented, Alert, Normal Mood/Affect, Normal Response , Motor Strength 02/24 ED Treatment Course - LABORATORY CBC & Chemistry Diagram: 01/20/19 21:30 01/20/19 21:30 Medical Decision Making - Medical Decision Making 01/20/19 21:29 Probably fecal-oral contamination of food, viral vs basterial (e.coli, listeria , salmonella, Hep A) *DC/Admit/Observation/Transfer Diagnosis at time of Disposition: Watery diarrhea - Discharge Dispostion Disposition: HOME Condition at time of disposition: Unchanged/Unknown Decision to Admit order: No - Referrals Schedule a call back: Call back for stool sample results/hepatitis panel results. Referrals: Neymar Ortiz MD [Primary Care Provider] - Jim Flaherty MD [Staff Physician] - - Patient Instructions Printed Discharge Instructions: Probiotics May Decrease Intensity and Duration of Diarrhea Due to Infection, Diarrhea Additional Instructions: Follow up with Dr. Flaherty, irrigation laborer. jewelry department supervisor Imodium at the pharmacy. Come back to the emergency department for any new, worsening or concerning symptom. - Post Discharge Activity
[2019-01-20] MEDS ORDERED: LACTATED RINGERS SOLUTION 1,000 ML/1,000 ML INFUS.BAG IV SCH (21:30)
[2019-01-20 21:36] LABS: BASO % 0.2 % (0-2.0); EOS % 1.7 % (0-4.5); HEMATOCRIT 42.2 % (32.4-45.2); HEMOGLOBIN 14.5 GM/dL (10.7-15.3); LYMPH % 12.7 % (8-40); MCH 30.9 pg (25.7-33.7); MCHC 34.3 g/dl (32.0-36.0); MEAN CELL VOLUME 90.1 fl (80-96); MEAN PLT VOLUME 8.8 fl (7.5-11.1); MONO % 8.6 % (3.8-10.2); NEUT % 76.8 % (42.8-82.8); PLATELET COUNT 232 K/MM3 (134-434); RBC 4.68 M/mm3 (3.60-5.2); RDW 13.4 % (11.6-15.6); WHITE BLOOD COUNT 10.5 K/mm3 (4.0-10.0)
[2019-01-20 21:44] LABS: PH,URINE 5.5 (5.0-8.0); URINE APPEARANCE CLEAR; URINE BACTERIA 15.6 /hpf (NEGATIVE); URINE BILIRUBIN 1+ (NEGATIVE); URINE CASTS 52 /hpf (0-8); URINE COLOR DK YELLOW; URINE GLUCOSE (UA) NEGATIVE (NEGATIVE); URINE KETONE TRACE (NEGATIVE); URINE LEUK ESTERASE TRACE (NEGATIVE); URINE NITRITE NEGATIVE (NEGATIVE); URINE PROTEIN 1+ (NEGATIVE); URINE WBC 4 /hpf (0-5)
[2019-01-20 22:00] LABS: ALK PHOS 79 U/L (45-117); ANION GAP 8 MMOL/L (8-16); BILIRUBIN,TOTAL 1.5 mg/dL (0.2-1); BLOOD UREA NITROGEN 11 mg/dL (7-18); CALCIUM 8.6 mg/dL (8.5-10.1); CHLORIDE 105 mmol/L (98-107); CO2 24 mmol/L (21-32); CREATININE 1.1 mg/dL (0.55-1.3); GLUCOSE,RANDOM 90 mg/dL (74-106); POTASSIUM 3.2 mmol/L (3.5-5.1); SGOT/AST 53 U/L (15-37); SGPT/ALT 46 U/L (13-61); SODIUM 137 mmol/L (136-145); TOT PROT 7.7 g/dl (6.4-8.2)
[2019-01-20] MEDS ORDERED: POTASSIUM CHLORIDE ORAL LIQUID 20 MEQ/15 ML PO ONE (22:28)
[2019-01-20] MEDS ORDERED: POTASSIUM CHLORIDE ORAL LIQUID 20 MEQ/15 ML ONE (22:30)
[2019-01-20 22:31] LABS: URINE RBC 3.8 /hpf (0-4)
--- NOTE | 2019-01-20 22:52 | PDOC ---
Attending Attestation - HPI HPI: 01/20/19 22:55 The patient is a 33 YOF with no PMH who presents to the ER for a 2 day history of NB, foul-smelling, yellow and watery diarrhea, up to 7 times per day. Patient states that two days ago she has a fruit/vegetable smoothie from an outdoors stand and subsequently noticed mild abdominal pain/discomfort. She has been unable to tolerate PO intake. Endorses mild nausea, but denies any vomiting. The patient denies chest pain, shortness of breath, headache and dizziness. Denies fever, chills, vomit and constipation. Denies dysuria, frequency, urgency and hematuria. Allergies: NKA Past surgical history: None reported. Social history: No reported alcohol, drug or cigarette use. PCP: Dr. Ortiz - Physicial Exam PE: 01/20/19 22:55 ADULT EXAM GENERAL: Awake, alert, and fully oriented, in no acute distress HEAD: No signs of trauma EYES: PERRLA, EOMI, sclera anicteric, conjunctiva clear ENT: Auricles normal inspection, hearing grossly normal, nares patent, oropharynx clear without exudates. Moist mucosa NECK: Normal ROM, supple, no lymphadenopathy, JVD, or masses LUNGS: Breath sounds equal, clear to auscultation bilaterally. No wheezes, and no crackles HEART: Regular rate and rhythm, normal S1 and S2, no murmurs, rubs or gallops ABDOMEN: Soft, nontender, normoactive bowel sounds. No guarding, no rebound. No masses EXTREMITIES: Normal range of motion, no edema. No clubbing or cyanosis. No cords , erythema, or tenderness NEUROLOGICAL: Cranial nerves II through XII grossly intact. Normal speech, normal gait SKIN: Warm, Dry, normal turgor, no rashes or lesions noted. <Marsha Kingston - Last Filed: 01/20/19 22:55> - Resident Resident Name: Abdoul Myles - Medical Decision Making 01/20/19 23:03 stool cultures sent hepatitis panel sent pt has no fever,her abdominal exam is benign cbc no leukocytosis potassium was sl decreased and this ws supplemented pt d/c home . She will be informed if her cultures are positive <Gisella Steward - Last Filed: 01/20/19 23:05>
[2019-01-20] MEDS ORDERED: LOPERAMIDE HCL 2 MG CAPSULE PO ONE (22:56)
[2019-01-20] MEDS ORDERED: LOPERAMIDE HCL 2 MG CAPSULE ONE (23:03)
[2019-01-22 02:10] LABS: HEP A AB, IGM Negative (Negative); HEP.C VIRUS AB <0.1 s/co ratio (0.0-0.9)
== END 2019-01-20 23:11 | disposition home or self-care (01) ==
LOC: JER 20:17
PROC: 3E0337Z Introduction of Electrolytic and Water Balance Substance into Peripheral Vein, Percutaneous Approach (ICD-10-PCS; principal; 2019-01-20)
DX: R19.7 Diarrhea, unspecified (principal); E03.9 Hypothyroidism, unspecified
CPT/HCPCS: 36415; 80053; 80074; 81003; 84703; 85025; 86708; 87045; 87046; 87086; 87205; 96360; 99281-25

== ENCOUNTER 2019-09-09 09:13 | Emergency (ER) | payer OTHER ==
[2019-09-09 09:29] VITALS: BP 107/65; TEMP 98; BMI 26.0
--- NOTE | 2019-09-09 10:25 | PDOC ---
History of Present Illness - General Chief Complaint: Cold Symptoms Stated Complaint: COLD SYMPTOMS/COUGH Time Seen by Provider: 09/09/19 09:47 History Source: Patient Exam Limitations: Clinical Condition - History of Present Illness Initial Comments: 09/09/19 10:20 Patient with no significant past medical history present with complaint of one- week history of persistent cough, runny nose, nasal congestion, sore throat and bilateral ear pain. Patient reports she was seen by PCP 5 days ago for symptoms and strep test done in the office and throat culture sent to lab was negative. Denies fever chills. Patient reports taking [id number] medication with minimal improvement Is this a multiple visit Asthma Patient?: No Timing/Duration: 1 week Past History - Past Medical History Allergies/Adverse Reactions: Allergies Allergy/AdvReac Type Severity Reaction Status Date / Time No Known Allergies Allergy Verified 01/20/19 20:33 Home Medications: Ambulatory Orders Levothyroxine [Synthroid -] 150 mcg PO DAILY 12/11/18 Loperamide HCl [Imodium -] 2 mg PO Q8H #21 capsule 01/20/19 Ciprofloxacin HCl [Cipro] 500 mg PO BID 7 Days #14 tablet 01/23/19 Azithromycin [Zithromax Tri-Solitario (3 DAYS) -] 500 mg PO DAILY #3 tablet 09/09/19 Benzonatate [Tessalon Pearls -] 100 mg PO Q8H PRN #21 capsule 09/09/19 Methylprednisolone [Medrol Dose Solitario] 4 mg PO ASDIR #21 tablet 09/09/19 Montelukast Na [Singulair -] 10 mg PO HS #7 tablet 09/09/19 Anemia: No Asthma: No Cancer: No Cardiac Disorders: No CVA: Yes (2015-NO RESIDUAL) COPD: No CHF: No Dementia: No Diabetes: No GI Disorders: Yes (CHOLECYSTECTOMY) Disorders: No HTN: No Hypercholesterolemia: No Liver Disease: No Seizures: No Thyroid Disease: Yes (HYPO) - Surgical History Cholecystectomy: Yes (04/30) - Reproductive History Spontaneous : 2 - Immunization History Immunization Up to Date: No - Psycho Social/Smoking Cessation Hx Smoking Status: No Smoking History: Never smoked Have you smoked in the past 12 months: No Number of Cigarettes Smoked Daily: 0 Information on smoking cessation initiated: No Hx Alcohol Use: No Drug/Substance Use Hx: No Substance Use Type: None Hx Substance Use Treatment: No Review of Systems - Review of Systems Able to Perform ROS?: Yes Is the patient limited Grenadian proficient: No Constitutional: Yes: Malaise. No: Chills, Fever HEENTM: Yes: Symptoms Reported, See HPI, Nose Congestion, Throat Pain. No: Eye Pain, Blurred Vision, Tearing, Recent change in vision, Double Vision, Cataracts , Ear Pain, Ocular Prothesis, Ear Discharge, Nose Pain, Tinnitus, Nose Bleeding , Hearing Loss, Throat Swelling, Mouth Pain, Dental Problems, Difficulty Swallowing, Mouth Swelling, Other Respiratory: Yes: Symptoms reported, See HPI, Cough, Productive cough (yellow sputum). No: Orthopnea, Shortness of Breath, SOB with Exertion, SOB at Rest, Stridor, Wheezing, Hemoptysis, Other Cardiac (ROS): No: Symptoms Reported, See HPI, Chest Pain, Edema, Irregular Heart Rate, Lightheadedness, Palpitations, Syncope, Chest Tightness, Other ABD/GI: No: Nausea, Vomiting Musculoskeletal: No: Symptoms Reported Integumentary: No: Symptoms Reported Neurological: No: Symptoms reported, Headache, Numbness, Paresthesia, Dizziness All Other Systems: Reviewed and Negative *Physical Exam - Vital Signs Last Vital Signs Temp Pulse Resp BP Pulse Ox 98.0 F 69 16 107/65 97 09/09/19 09:27 09/09/19 09:27 09/09/19 09:27 09/09/19 09:27 09/09/19 09:27 - Physical Exam Comments: 09/09/19 10:26 GENERAL: Well developed, well nourished. Awake and alert. No acute distress. HEENT: Normocephalic, atraumatic. PERRLA, EOMI. No conjunctival pallor. Sclera are non-icteric. Moist mucous membranes. Oropharynx is clear. NECK: Supple. Full ROM. CARDIOVASCULAR: Regular rate and rhythm. No murmurs, rubs, or gallops. Distal pulses are 2+ and symmetric. PULMONARY: No evidence of respiratory distress. Lungs clear to auscultation bilaterally. No wheezing, rales or rhonchi. ABDOMINAL: Soft. Non-tender. Non-distended. No rebound or guarding. No organomegaly. Normoactive bowel sounds. MUSCULOSKELETAL Normal range of motion at all joints. SKIN: Warm and dry. Normal capillary refill. No rashes. No jaundice. NEUROLOGICAL: Alert, awake, appropriate. Gait is normal without ataxia. PSYCHIATRIC: Cooperative. Good eye contact. Appropriate mood General Appearance: Yes: Nourished, Appropriately Dressed. No: Apparent Distress Medical Decision Making - Medical Decision Making 09/09/19 10:23 Patient with no significant past medical history present with complaint of one- week history of persistent cough, runny nose, nasal congestion, sore throat and bilateral ear pain. Patient reports she was seen by PCP 5 days ago for symptoms and strep test done in the office and throat culture sent to lab was negative. Denies fever chills. Patient reports taking [id number] medication with minimal improvement Clinical exam significant for bilateral nasal congestion otherwise unremarkable exam. Lungs clear to auscultation bilateral. Patient stable for outpatient management for sinusitis and viral URI on Tessalon Perles as needed for cough and Medrol Solitario with Atrovent nasal spray for nasal congestion and Zithromax 3-day course for sinusitis with PCP follow-up Discharge - Discharge Information Problems reviewed: Yes Clinical Impression/Diagnosis: URI (upper respiratory infection) Qualifiers: URI type: unspecified URI Qualified Code(s): J06.9 - Acute upper respiratory infection, unspecified Pharyngitis Qualifiers: Pharyngitis/tonsillitis etiology: unspecified etiology Qualified Code(s): J02.9 - Acute pharyngitis, unspecified Sinusitis Qualifiers: Sinusitis location: maxillary Chronicity: acute Recurrence: non-recurrent Qualified Code(s): J01.00 - Acute maxillary sinusitis, unspecified Condition: Stable Disposition: HOME - Admission No - Additional Discharge Information Prescriptions: Azithromycin [Zithromax Tri-Solitario (3 DAYS) -] 500 mg PO DAILY #3 tablet Benzonatate [Tessalon Pearls -] 100 mg PO Q8H PRN #21 capsule PRN Reason: Cough Methylprednisolone [Medrol Dose Solitario] 4 mg PO ASDIR #21 tablet Montelukast Na [Singulair -] 10 mg PO HS #7 tablet - Follow up/Referral Referrals: Neymar Ortiz MD [Primary Care Provider] - - Patient Discharge Instructions Patient Printed Discharge Instructions: DI for Sinusitis Additional Instructions: Take medication as prescribed. Increase fluid intake. Follow-up back with your primary care as needed - Post Discharge Activity
[2019-09-09 10:26] VITALS: PULSE 84
== END 2019-09-09 10:38 | disposition home or self-care (01) ==
LOC: JERFT 09:13
DX: J01.00 Acute maxillary sinusitis, unspecified (principal); J02.9 Acute pharyngitis, unspecified; J06.9 Acute upper respiratory infection, unspecified; E03.9 Hypothyroidism, unspecified; Z86.73 Personal history of transient ischemic attack (TIA), and cerebral infarction without residual deficits; Z90.49 Acquired absence of other specified parts of digestive tract
CPT/HCPCS: 99281-25

== ENCOUNTER 2019-09-17 18:51 | Observation (INO) | payer OTHER ==
[2019-09-17 19:05] VITALS: BMI 25.0
--- NOTE | 2019-09-17 19:05 | PDOC ---
Rapid Medical Evaluation Chief Complaint: Shortness of Breath Time Seen by Provider: 09/17/19 19:01 Medical Evaluation: Allergies Allergy/AdvReac Type Severity Reaction Status Date / Time No Known Allergies Allergy Verified 01/20/19 20:33 09/17/19 19:01 I have performed a brief in-person evaluation of this patient. The patient presents with a chief complaint of:SOB x 1 week, was seen here and treated with Zpack. Since has had worsening, but + CVA 2 years ago with same type of symptoms. + headache. SOme left sided weakness Pertinent physical exam findings: acute onset of chest pain with left chest wall pressure I have ordered the following: EKG , labs - code elizabeth called and patient taken to main ER The patient will proceed to the ED for further evaluation. 09/17/19 19:02 09/17/19 19:39 Discharge Disposition - Diagnosis Weakness - Referrals - Patient Instructions - Post Discharge Activity
[2019-09-17] MEDS ORDERED: SODIUM CHLORIDE 1,000 ML IV SCH (19:15)
[2019-09-17 19:33] LABS: BASO % 0.9 % (0-2.0); EOS % 1.4 % (0-4.5); HEMATOCRIT 39.4 % (32.4-45.2); HEMOGLOBIN 13.3 GM/dL (10.7-15.3); LYMPH % 38.8 % (8-40); MCH 30.3 pg (25.7-33.7); MCHC 33.7 g/dl (32.0-36.0); MEAN PLT VOLUME 9.4 fl (7.5-11.1); NEUT % 50.9 % (42.8-82.8); PLATELET COUNT 242 K/MM3 (134-434); RBC 4.38 M/mm3 (3.60-5.2); RDW 13.5 % (11.6-15.6); WHITE BLOOD COUNT 8.2 K/mm3 (4.0-10.0)
[2019-09-17] MEDS ORDERED: ASPIRIN 81 MG CHEWABLE TABLETS ONE (19:43)
[2019-09-17] MEDS ORDERED: ASPIRIN 81 MG CHEWABLE TABLETS PO ONE (19:43)
--- NOTE | 2019-09-17 19:44 | PDOC ---
History of Present Illness - General Chief Complaint: Shortness of Breath Stated Complaint: SOB/CHEST PAIN Time Seen by Provider: 09/17/19 19:01 - History of Present Illness Initial Comments: HPI: 34yo F with PMH of hypothyroidism, lung AVM, and CVA in 2016 presenting with left sided weakness. Patient presents today because around 5:30pm she felt left sided "pins and needles" sensation and weakness, as well as chest pain and shortness of breath. Describes the chest pain as constant "mild pressure." No associated nausea, vomiting, or diaphoresis. No personal or family history of heart problems. Nonsmoker. No hemoptysis, no recent surgical history, no recent immobilization, no hormone use, no history of DVT or PE. States she has been feeling poorly for the past week or so such that she presented to this ER on with upper respiratory illness symptoms and was prescribed several medications including a z-pack, medrol dose caitlin, atrovent, and tessalon perles. Has had congestion, as well as frequent nosebleeds. No cough, urinary symptoms. or diarrhea. LMP was 2 weeks ago. Denies fever or chills. PCP: Dr. Ortiz Neuro: Dr. Aceves ROS: Constitutional: no fever, no chills HEENT: no throat pain, no dysphagia Cardiovascular: +chest pain, no palpitations Respiratory: no cough, +shortness of breath Gastrointestinal: no abdominal pain, no nausea Genitourinary: no dysuria, no hematuria Musculoskeletal: no myalgia, no arthralgia Skin: no rash, no itching Neurologic: no headache, +weakness PE: General: Awake, alert, and fully oriented, anxious Head: No signs of trauma Eyes: EOMI, sclera anicteric ENT: Moist mucus membranes Neck: Normal ROM, supple Lungs: Lungs clear, Normal breath sounds Cardio: Regular rhythm, S1 and S2 present Abdomen: Soft, nontender. No guarding, no rebound, no masses Extremities: Normal range of motion, Distal pulses present SKIN: Warm, Dry, normal turgor Neurologic: Cranial nerves II through XII intact. Normal speech, coordination, and gait. 4/5 strength in LUE and LLE and 5/5 strength in RUE and RLE. Able to distinguish sharp and dull sensation bilaterally on trunk and extremities ED Course/MDM: 34yo F with PMH of hypothyroidism and CVA in 2016 presenting with left sided weakness. DDX including but not limited to CVA/TIA, recrudescence of stroke, URI, ACS, PE , PNA, anemia, metabolic derangement Patient without PE risk factors; PERC 0 and WELLS 0 NIHSS 1 (for smile assymetry per the daughter at the bedside) TPA contraindicated as NIHSS is too low EKG: rate 56, QTc 401, bradycardic, incomplete RBBB as seen on previous EKG on CT Head as reported by radiology: " EXAM#: TYPE/EXAM: RESULT: [id number] CT/HEAD CT (STROKE) Cranial CT without contrast Clinical information: evaluate for CVA Multiplanar imaging was performed. Intravenous contrast was not administered. No intracranial hemorrhage is seen. There is no extra-axial fluid collection. No discrete infarct is identified within the limitations of CT. There is no obvious mass lesion on noncontrast imaging. No abnormal intracranial attenuation is noted. The ventricles and cisterns appear unremarkable. No calvarial defect is seen. A verbal report was provided to emergency department personnel () at the time of dictation. Impression: No CT evidence of acute intracranial pathology. There has been no definite interval change in comparison to a prior CT exam of 12/10/2018." Discussed case with Dr. Aceves who agreed with no TPA. Recommends ASA. Plan for admission to stroke floor. Dr. Arceo is chronic specialist and consult will be placed for this physician. 09/17/19 19:44 CBC WBC 8.2 K/mm3 (4.0-10.0) 09/17/19 19:17 RBC 4.38 M/mm3 (3.60-5.2) 09/17/19 19:17 Hgb 13.3 GM/dL (10.7-15.3) 09/17/19 19:17 Hct 39.4 % (32.4-45.2) 09/17/19 19:17 MCV 90.0 fl (80-96) 09/17/19 19:17 MCH 30.3 pg (25.7-33.7) 09/17/19 19:17 MCHC 33.7 g/dl (32.0-36.0) 09/17/19 19:17 RDW 13.5 % (11.6-15.6) 09/17/19 19:17 Plt Count 242 K/MM3 (134-434) 09/17/19 19:17 MPV 9.4 fl (7.5-11.1) 09/17/19 19:17 Absolute Neuts (auto) 4.1 K/mm3 (1.5-8.0) 09/17/19 19:17 Neutrophils % 50.9 % (42.8-82.8) 09/17/19 19:17 Lymphocytes % 38.8 % (8-40) D 09/17/19 19:17 Monocytes % 8.0 % (3.8-10.2) 09/17/19 19:17 Eosinophils % 1.4 % (0-4.5) 09/17/19 19:17 Basophils % 0.9 % (0-2.0) D 09/17/19 19:17 Nucleated RBC % 0 % (0-0) 09/17/19 19:17 No leukocytosis or anemia 09/17/19 19:56 CXR, as reported by radiology: "EXAM#: TYPE/EXAM: RESULT: [id number] RAD/CHEST X- RAY PORTABLE* Chest : Left-sided weakness A single view of the chest reveals clear lungs, normal mediastinum and sharp angles. The bones and soft tissues are intact. Impression: No acute chest pathology. No change of an adverse nature since 01/18/2011" CMP Sodium 139 mmol/L (136-145) 09/17/19 19:15 Potassium 3.9 mmol/L (3.5-5.1) 09/17/19 19:15 Chloride 110 mmol/L (98-107) H 09/17/19 19:15 Carbon Dioxide 22 mmol/L (21-32) 09/17/19 19:15 Anion Gap 8 MMOL/L (8-16) 09/17/19 19:15 BUN 16.6 mg/dL (7-18) 09/17/19 19:15 Creatinine 0.8 mg/dL (0.55-1.3) 09/17/19 19:15 Est GFR (CKD-EPI)AfAm 109.93 09/17/19 19:15 Est GFR (CKD-EPI)NonAf 94.85 09/17/19 19:15 Random Glucose 84 mg/dL (74-106) 09/17/19 19:15 Calcium 9.2 mg/dL (8.5-10.1) 09/17/19 19:15 Total Bilirubin 0.3 mg/dL (0.2-1) 09/17/19 19:15 AST 13 U/L (15-37) L 09/17/19 19:15 ALT 13 U/L (13-61) 09/17/19 19:15 Alkaline Phosphatase 74 U/L (45-117) 09/17/19 19:15 Creatine Kinase 71 U/L (26-192) 09/17/19 19:15 Troponin I < 0.02 ng/ml (0.00-0.05) 09/17/19 19:15 Total Protein 7.4 g/dl (6.4-8.2) 09/17/19 19:15 Albumin 3.9 g/dl (3.4-5.0) 09/17/19 19:15 Triglycerides 216 mg/dL (0-150) H 09/17/19 19:15 Cholesterol 172 mg/dL (50-200) 09/17/19 19:15 Total LDL Cholesterol 101 mg/dL (5-100) H 09/17/19 19:15 HDL Cholesterol 53 mg/dL (40-60) 09/17/19 19:15 Electrolytes unremarkable Tpn undetectable No transaminitis High TG and LDL UA normal Toradol ordered for chest pain 09/17/19 20:43 Had extensive discussion with patient regarding my recommendation for admission. She is amenable to staying, however, voiced her frustration regarding never having answers on what has caused her symptoms. We talked about how she is supposed to take a daily aspirin on recommendation of her neurologist , but that she has not done so. Utilized motivational interviewing and brought up my concerns for acute pathology. Patient's PCP is Dr. Ortiz who is not in our callbook. Will send microblog to [facility] team. 09/17/19 21:[address] Villavicencio who accepted patient for stroke floor admission under Dr. Field 09/17/19 21:29 tPA Exclusion Checklist 0-3hr - Time Elapsed Date last known well: 09/17/19 Time last known well: 17:30 Elaspsed time: Day(s) and 10 Hour(s) and 51 Minutes - Thrombolytic Therapy Candidate Is the patient eligible for Thrombolytic Therapy?: No - Relative Exclusion Criteria 0-3h Stroke severity too mild: Yes - Ineligibility reason(s) Reasons No tPA given: See reason(s) noted above NIH Stroke Scale - Last Known Well Date/Time & Onset Date Last Known Well: 09/17/19 Time Last Known Well: 20:30 - Initial Evaluation Level of consciousness: Alert Ask patient the month and their age: Answers both correctly Ask patient to open & close eyes; make fist and let go: Obeys both correctly Best gaze (horizontal eye movement): Normal Visual field testing: No visual field loss Facial paresis (Show teeth/raise eyebrows/close eyes tight): Minor paralysis ( flattened nasolabial fold, asymmetry on smiling) Motor Function: Left Arm: Normal Motor Function: Right Arm: Normal (extends arm 90 (or 45) degrees for 10 seconds without drift Motor Function: Left Leg: Normal (extends leg 30 degrees for 5 seconds without drift) Motor Function: Right Leg: Normal (extends leg 30 degrees for 5 seconds without drift) Limb Ataxia: No ataxia Sensory(Use pinprick test arms,legs,trunk,face/side to side): Normal Best language (Describe picture, name items, read sentences): No Aphasia Dysarthria (read several words): Normal articulation Extinction and Inattention: No abnormality - Total Score NIH Stroke Scale Score: 1 Past History - Past Medical History Allergies/Adverse Reactions: Allergies Allergy/AdvReac Type Severity Reaction Status Date / Time amoxicillin Allergy Verified 09/17/19 19:05 clindamycin Allergy Verified 09/17/19 19:05 Home Medications: Ambulatory Orders Levothyroxine [Synthroid -] 150 mcg PO DAILY 09/17/19 Anemia: No Asthma: No Cancer: No Cardiac Disorders: No CVA: Yes (2015-NO RESIDUAL) COPD: No CHF: No Dementia: No Diabetes: No GI Disorders: Yes (CHOLECYSTECTOMY) Disorders: No HTN: No Hypercholesterolemia: No Liver Disease: No Seizures: No Thyroid Disease: Yes (HYPO) - Surgical History Cholecystectomy: Yes (04/30) - Reproductive History Spontaneous : 2 - Immunization History Immunization Up to Date: No - Psycho Social/Smoking Cessation Hx Smoking Status: No Smoking History: Never smoked Have you smoked in the past 12 months: No Number of Cigarettes Smoked Daily: 0 Hx Alcohol Use: No Drug/Substance Use Hx: No Substance Use Type: None Hx Substance Use Treatment: No *Physical Exam - Vital Signs Last Vital Signs Temp Pulse Resp BP Pulse Ox 97.5 F L 65 20 106/73 100 09/17/19 19:00 09/17/19 19:00 09/17/19 19:00 09/17/19 19:00 09/17/19 19:00 ED Treatment Course - LABORATORY CBC & Chemistry Diagram: 09/17/19 19:17 09/17/19 19:15 - ADDITIONAL ORDERS Additional order review: Laboratory Results 09/17/19 19:15 Cholesterol Cancelled 09/17/19 19:17 RBC 4.38 MCV 90.0 MCHC 33.7 RDW 13.5 MPV 9.4 Neutrophils % 50.9 Lymphocytes % 38.8 D Monocytes % 8.0 Eosinophils % 1.4 Basophils % 0.9 D Discharge - Discharge Information Problems reviewed: Yes Clinical Impression/Diagnosis: Left-sided weakness Chest pain Qualifiers: Chest pain type: unspecified Qualified Code(s): R07.9 - Chest pain, unspecified Condition: Guarded - Admission Yes - Follow up/Referral - Patient Discharge Instructions - Post Discharge Activity
[2019-09-17 19:45] LABS: INR 0.98 (0.83-1.09); PROTHROMBIN TIME (PATIENT) 11.6 SEC (9.7-13.0)
[2019-09-17 19:48] LABS: ACTIVATED PTT 30.8 SECONDS (25.2-36.5)
[2019-09-17 20:05] LABS: ALBUMIN 3.9 g/dl (3.4-5.0); ALK PHOS 74 U/L (45-117); ANION GAP 8 MMOL/L (8-16); BILIRUBIN,TOTAL 0.3 mg/dL (0.2-1); BLOOD UREA NITROGEN 16.6 mg/dL (7-18); CALCIUM 9.2 mg/dL (8.5-10.1); CHLORIDE 110 mmol/L (98-107); CHOLESTEROL 172 mg/dL (50-200); CO2 22 mmol/L (21-32); CREATININE 0.8 mg/dL (0.55-1.3); GLUCOSE,RANDOM 84 mg/dL (74-106); HDL CHOLESTEROL 53 mg/dL (40-60); LDL CHOLESTEROL (ONLY SJRH) 101 mg/dL (5-100); POTASSIUM 3.9 mmol/L (3.5-5.1); SGOT/AST 13 U/L (15-37); SGPT/ALT 13 U/L (13-61); SODIUM 139 mmol/L (136-145); TOT PROT 7.4 g/dl (6.4-8.2); TRIGLYCERIDES 216 mg/dL (0-150)
[2019-09-17 20:21] LABS: PH,URINE 6.5 (5.0-8.0); URINE APPEARANCE CLEAR; URINE BILIRUBIN NEGATIVE (NEGATIVE); URINE COLOR YELLOW; URINE GLUCOSE (UA) NEGATIVE (NEGATIVE); URINE KETONE NEGATIVE (NEGATIVE); URINE LEUK ESTERASE NEGATIVE (NEGATIVE); URINE NITRITE NEGATIVE (NEGATIVE); URINE PROTEIN NEGATIVE (NEGATIVE); URINE UROBILINOGEN 0.2 mg/dL (0.2-1.0)
[2019-09-17] MEDS ORDERED: KETOROLAC TROMETHAMINE 30 MG/1 ML VIAL ONE (20:45)
[2019-09-17] MEDS ORDERED: KETOROLAC TROMETHAMINE 30 MG/1 ML VIAL IVPUSH ONE (20:45)
--- NOTE | 2019-09-17 21:22 | PDOC ---
Documentation entered by Yecenia Weeks SCRIBE, acting as scribe for Gisella Steward MD. Gisella Steward MD: This documentation has been prepared by the scribe, Yecenia Weeks SCRIBE, under my direction and personally reviewed by me in its entirety. I confirm that the documentation accurately reflects all work, treatment, procedures, and medical decision making performed by me. Attending Attestation - Resident Resident Name: MileySheEileen - ED Attending Attestation I have performed the following: I have examined & evaluated the patient, The case was reviewed & discussed with the resident, I agree w/resident's findings & plan, Exceptions are as noted - HPI HPI: 09/17/19 19:47 The patient is a 34 year old with significant past medical history of hypothyroidism and CVA (2016) who presents to the ED with L sided pins and needles sensation, SOB, and weakness. Patient notes symptoms are similar to her past CVA symptoms. Patient endorses chest pain, described as pressure like sensation, 5/10 in severity. Pt notes associated cold symptoms x1 week, she was seen here in the ED 09/09/19 and treated with Zpack. Pt notes she has had several nosebleeds in the past week. Pt reports traveling outside the state on (13 hr+ trip). The patient denies headache and dizziness. Denies fever, chills, nausea, vomiting, diarrhea and constipation. Denies dysuria, frequency, urgency and hematuria. Allergies:amoxicillin, clindamycin Surgical History: Cholecystectomy - Physicial Exam PE: 09/17/19 19:53 GENERAL: Awake, alert, and fully oriented, in no acute distress HEAD: No signs of trauma EYES: PERRLA, EOMI, sclera anicteric, conjunctiva clear ENT: Auricles normal inspection, hearing grossly normal, nares patent, oropharynx clear without exudates. Moist mucosa. LUNGS: Breath sounds equal, clear to auscultation bilaterally. No wheezes, and no crackles HEART: Regular rate and rhythm, normal S1 and S2, no murmurs, rubs or gallops ABDOMEN: Soft, nontender, normoactive bowel sounds. No guarding, no rebound. No masses EXTREMITIES: No edema. No clubbing or cyanosis. No cords, erythema, or tenderness. NEUROLOGICAL: Cranial nerves II through XII grossly intact. +mild L sided facial droop. +4/5 L arm strength and sensation. + 4/5 L left leg strength and sensation. SKIN: Warm, Dry, normal turgor, no rashes or lesions noted. - Medical Decision Making 09/17/19 21:21 34-year-old female presented with shortness of breath, chest pain and left- sided weakness just prior to arrival. Past medical history of a small acute frontoparietal cortical infarct in 201509/17/19 21:21 CAT scan of the head was negative for any acute intracranial pathology NIH stroke scale is about 1 she does not qualify for TPA at this time Neurology consult obtained and patient will be given full dose of aspirin and admitted to telemetry/stroke
--- NOTE | 2019-09-17 21:27 | PN ---
Teaching Attending Note Name of Resident: Jermaine Vaughan ATTENDING PHYSICIAN STATEMENT I saw and evaluated the patient. I reviewed the resident's note and discussed the case with the resident. I agree with the resident's findings and plan as documented. SUBJECTIVE: Patient is a 34 year old woman with a PMH of Hypothyroidism, Lung AVM, Recent URI, Cholecystectomy and CVA in 2016 presenting with left sided weakness. Around 5:30 pm she felt left sided "pins and needles" sensation and weakness, as well as chest pain and shortness of breath. Describes the chest pain as constant "mild pressure." No associated nausea, vomiting, or diaphoresis. No personal or family history of heart problems. Nonsmoker. No hemoptysis, no recent surgery, immobilization, hormone use and no history of DVT or PE. States she has been feeling poorly for the past week or so such that she presented to this ER on 09/09/19 with upper respiratory illness symptoms and was prescribed several medications including a z-pack, medrol dose solitario, atrovent , and tessalon perles. Has had congestion, as well as frequent nosebleeds. No cough, urinary symptoms. or diarrhea. LMP was 2 weeks ago. Denies fever or chills. Reports traveling outside the state on 07/20/19 (13 hr+ trip). The patient denies headache, nausea, vomiting, diarrhea, constipation, dysuria, frequency, urgency or hematuria. FH of cancer. LMP is 09/09/19 and lasted 10 days. Says she has had recent increase in stress in her life. OBJECTIVE: Alert Vital Signs Period Temp Pulse Resp BP Sys/Vargas Pulse Ox Last 24 Hr 97.5 F 56-65 18-20 106-128/73-88 100-100 HEENT: No Jaundice, eye redness or discharge, PERRLA, EOMI. Normocephalic, atraumatic. External ears are normal and hearing is grossly intact. No nasal discharge. Neck: Supple, nontender. No palpable adenopathy or thyromegaly. No JVD Chest: Good effort. Clear to auscultation and percussion. Heart: Regular. No S3, rub or murmur Abdomen: Not distended, soft, nontender and no HSM. No rebound or guarding. Normal bowel sounds. Ext: Peripheral pulses intact. No leg edema. Skin: Warm and dry. No petechiae, rash or ecchymosis. Neuro: Alert. Oriented x3. CN 2-12 grossly intact. Sensation grossly intact in all four extremities and DTR are symmetric. Psych: Appropriate mood and affect. Good insight. Current Medications Generic Name Dose Route Start Last Admin Trade Name Freq PRN Reason Stop Dose Admin Sodium Chloride 1,000 mls @ 42 mls/hr 09/17/19 19:15 Normal Saline - IV ASDIR [facility] Home Medications Medication Instructions Recorded Levothyroxine [Synthroid -] 150 mcg PO DAILY 12/11/18 Loperamide HCl [Imodium -] 2 mg PO Q8H #21 capsule 01/20/19 Ciprofloxacin HCl [Cipro] 500 mg PO BID 7 Days #14 tablet 01/23/19 Azithromycin [Zithromax Tri-Solitario (3 500 mg PO DAILY #3 tablet 09/09/19 DAYS) -] Benzonatate [Tessalon Pearls -] 100 mg PO Q8H PRN #21 capsule 09/09/19 Methylprednisolone [Medrol Dose 4 mg PO ASDIR #21 tablet 09/09/19 Solitario] Montelukast Na [Singulair -] 10 mg PO HS #7 tablet 09/09/19 Abnormal Lab Results 09/17/19 09/17/19 19:15 19:15 Chloride 110 H AST 13 L Triglycerides 216 H Total LDL Cholesterol 101 H ASSESSMENT AND PLAN: 1. Chest pain/Rule out CVA - No acute abnormality on head CT and on CXR. NIHSS was 1. ER staff discussed case with the neurologist and tPA was not recommended. Chest pain resolved. EKG shows sinus bradycardia with IRBBB and no significant ST-T wave changes. Initial troponin is negative. Will admit to telemetry to rule ot ACS, get ECHO, carotid doppler, treat with lipitor 80 mg and ASA, get MRI brain and do speech and swallow evaluation. Nose bleeding may be related to recent URI - will monitor closely. Get D-dimer, leg doppler and pelvic sonogram to rule out fibroids. Consult neurology and cardiology. Will continue comprehensive care for all of patients comorbid conditions. 2. DVT prophylaxis - Lovenox 40 mg SQ q 24 hours. 3. Advance directives - Full code
[2019-09-17] MEDS ORDERED: ACETAMINOPHEN 1000 MG/100 ML VIAL (NON FORMULARY) IVPB ONE (22:15)
[2019-09-17] MEDS ORDERED: ACETAMINOPHEN INJECTION 100 ML IVPB ONE (22:22)
[2019-09-18] MEDS ORDERED: ACETAMINOPHEN 325 MG TABLET (FP) PO PRN (00:10)
--- NOTE | 2019-09-18 05:07 | HP ---
CHIEF COMPLAINT: Chest pain PCP: Dr. Cheko Ortiz HISTORY OF PRESENT ILLNESS: 34 y/o female PMH hypothyroidism and CVA (2016 initially LEFT sided weakness but now no residual deficit) c/o CP. She states that on 17 Sep 2019 she experienced a nosebleed while at work and then sudden chest pain. The CP is located diffusely across the LEFT side of her chest, characterized by pressure, non-radiating, no alleviating factors, worsened by deep inspiration and 8/10. It was noted that on initial presentation to the ED she had LEFT sided weakness , which has since resolved. She states that the CP was similar to when she experienced her CVA in 2016. She denies SOB and calf pain. She has never smoked. She admits to recent life stressors but is unwilling to describe them; otherwise she says she feels safe at home. She states that her LMP was 09 Sep 2019, is heavier than usual (8-10 pads per day), and lasted for 10 days ( Normally 6-8 day). She was seen in the ED recently for URI. She denies LUIS, dizziness, vision changes, and NVFD. ER course was notable for: (1) ASA given (2) Torodol for CP (3) NO tpa given Recent Travel: denies PAST MEDICAL HISTORY: Hypothyroidism and CVA (2016 initially LEFT sided weakness but now no residual deficit) PAST SURGICAL HISTORY: Social History: Smoking: Alcohol: Drugs: Allergies: Amoxicillin Allergy (Verified 09/17/19 19:05). Clindamycin Allergy ( Verified 09/17/19 19:05) HOME MEDICATIONS: Medication Instructions Recorded Levothyroxine [Synthroid -] 150 mcg PO DAILY 09/17/19 REVIEW OF SYSTEMS CONSTITUTIONAL: Absent: fever, chills, diaphoresis, generalized weakness, malaise, loss of appetite, weight change HEENT: Absent: rhinorrhea, nasal congestion, throat pain, throat swelling, difficulty swallowing, mouth swelling, ear pain, eye pain, visual changes CARDIOVASCULAR: Absent: chest pain, syncope, palpitations, irregular heart rate, lightheadedness , peripheral edema RESPIRATORY: Absent: cough, shortness of breath, dyspnea with exertion, orthopnea, wheezing, stridor, hemoptysis GASTROINTESTINAL: Absent: abdominal pain, abdominal distension, nausea, vomiting, diarrhea, constipation, melena, hematochezia GENITOURINARY: Absent: dysuria, frequency, urgency, hesitancy, hematuria, flank pain, genital pain MUSCULOSKELETAL: Absent: myalgia, arthralgia, joint swelling, back pain, neck pain SKIN: Absent: rash, itching, pallor HEMATOLOGIC/IMMUNOLOGIC: Absent: easy bleeding, easy bruising, lymphadenopathy, frequent infections ENDOCRINE: Absent: unexplained weight gain, unexplained weight loss, heat intolerance, cold intolerance NEUROLOGIC: Absent: headache, focal weakness or paresthesias, dizziness, unsteady gait, seizure, mental status changes, bladder or bowel incontinence PSYCHIATRIC: Absent: anxiety, depression, suicidal or homicidal ideation, hallucinations. PHYSICAL EXAMINATION Vital Signs - 24 hr 09/17/19 09/17/19 09/17/19 19:00 20:48 20:56 Temperature 97.5 F L Pulse Rate 65 Pulse Rate [ 56 L Apical] Respiratory 20 18 Rate Blood Pressure 106/73 Blood Pressure 128/88 [Right Arm] O2 Sat by Pulse 100 100 100 Oximetry (%) 09/17/19 09/18/19 23:29 02:54 Temperature Pulse Rate Pulse Rate [ 56 L 54 L Apical] Respiratory 18 18 Rate Blood Pressure Blood Pressure 127/88 115/90 [Right Arm] O2 Sat by Pulse 100 99 Oximetry (%) GENERAL: Awake, alert, and fully oriented, in no acute distress. HEAD: Normal with no signs of trauma. EYES: Pupils equal, round and reactive to light, extraocular movements intact, sclera anicteric, conjunctiva clear. No lid lag. EARS, NOSE, THROAT: Ears normal, nares patent, oropharynx clear without exudates. Moist mucous membranes. NECK: Normal range of motion, supple without lymphadenopathy, JVD, or masses. LUNGS: Breath sounds equal, clear to auscultation bilaterally. No wheezes, and no crackles. No accessory muscle use. HEART: Regular rate and rhythm, normal S1 and S2 without murmur, rub or gallop. ABDOMEN: Soft, nontender, not distended, normoactive bowel sounds, no guarding, no rebound, no masses. No hepatomegaly or splenomegaly. MUSCULOSKELETAL: Normal range of motion at all joints. No bony deformities or tenderness. No CVA tenderness. UPPER EXTREMITIES: 2+ pulses, warm, well-perfused. No cyanosis. No clubbing. No peripheral edema. LOWER EXTREMITIES: 2+ pulses, warm, well-perfused. No calf tenderness. No peripheral edema. NEUROLOGICAL: Cranial nerves II-XII intact. Normal speech. Normal gait. PSYCHIATRIC: Cooperative. Good eye contact. Appropriate mood and affect. SKIN: Warm, dry, normal turgor, no rashes or lesions noted, normal capillary refill. Laboratory Results - last 24 hr 09/17/19 09/17/19 09/17/19 19:15 19:15 19:17 WBC RBC Hgb Hct MCV MCH MCHC RDW Plt Count MPV Absolute Neuts (auto) Neutrophils % Lymphocytes % Monocytes % Eosinophils % Basophils % Nucleated RBC % PT with INR 11.60 INR 0.98 PTT (Actin FS) 30.8 Sodium 139 Potassium 3.9 Chloride 110 H Carbon Dioxide 22 Anion Gap 8 BUN 16.6 Creatinine 0.8 Est GFR (CKD-EPI)AfAm 109.93 Est GFR (CKD-EPI)NonAf 94.85 Random Glucose 84 Calcium 9.2 Total Bilirubin 0.3 AST 13 L ALT 13 Alkaline Phosphatase 74 Creatine Kinase 71 Troponin I < 0.02 Total Protein 7.4 Albumin 3.9 Triglycerides 216 H Cholesterol Cancelled 172 Total LDL Cholesterol 101 H HDL Cholesterol 53 Urine Color Urine Appearance Urine pH Ur Specific [place] Urine Protein Urine Glucose (UA) Urine Ketones Urine Blood Urine Nitrite Urine Bilirubin Urine Urobilinogen Ur Leukocyte Esterase Urine HCG, Qual Blood Type Antibody Screen 09/17/19 09/17/19 09/17/19 19:17 19:17 20:05 WBC 8.2 RBC 4.38 Hgb 13.3 Hct 39.4 MCV 90.0 MCH 30.3 MCHC 33.7 RDW 13.5 Plt Count 242 MPV 9.4 Absolute Neuts (auto) 4.1 Neutrophils % 50.9 Lymphocytes % 38.8 D Monocytes % 8.0 Eosinophils % 1.4 Basophils % 0.9 D Nucleated RBC % 0 PT with INR INR PTT (Actin FS) Sodium Potassium Chloride Carbon Dioxide Anion Gap BUN Creatinine Est GFR (CKD-EPI)AfAm Est GFR (CKD-EPI)NonAf Random Glucose Calcium Total Bilirubin AST ALT Alkaline Phosphatase Creatine Kinase Troponin I Total Protein Albumin Triglycerides Cholesterol Total LDL Cholesterol HDL Cholesterol Urine Color Yellow Urine Appearance Clear Urine pH 6.5 Ur Specific [place] 1.012 Urine Protein Negative Urine Glucose (UA) Negative Urine Ketones Negative Urine Blood Negative Urine Nitrite Negative Urine Bilirubin Negative Urine Urobilinogen 0.2 Ur Leukocyte Esterase Negative Urine HCG, Qual Blood Type O POSITIVE Antibody Screen Negative 09/17/19 20:05 WBC RBC Hgb Hct MCV MCH MCHC RDW Plt Count MPV Absolute Neuts (auto) Neutrophils % Lymphocytes % Monocytes % Eosinophils % Basophils % Nucleated RBC % PT with INR INR PTT (Actin FS) Sodium Potassium Chloride Carbon Dioxide Anion Gap BUN Creatinine Est GFR (CKD-EPI)AfAm Est GFR (CKD-EPI)NonAf Random Glucose Calcium Total Bilirubin AST ALT Alkaline Phosphatase Creatine Kinase Troponin I Total Protein Albumin Triglycerides Cholesterol Total LDL Cholesterol HDL Cholesterol Urine Color Urine Appearance Urine pH Ur Specific [place] Urine Protein Urine Glucose (UA) Urine Ketones Urine Blood Urine Nitrite Urine Bilirubin Urine Urobilinogen Ur Leukocyte Esterase Urine HCG, Qual Negative Blood Type Antibody Screen ASSESSMENT/PLAN: 34 y/o female PMH hypothyroidism and CVA (2016 initially LEFT sided weakness but now no residual deficit) c/o CP. H/o CVA and similar current presentation with LEFT sided weakness, which resolved in ED. NEGATIVE head Ct. CP with NEGATIVE CXR and NEGATIVE trop x1. # Chest pain, r/o CVA - NEGATIVE Head CT and CXR - NIHSS 0 - No tPA - Consult neurology # R/o ACS - Troponin NEG x1 - ECHO - Carotid doppler - D-dimer - LE doppler - Pelvic sonogram to r/o fibroids - Consult cardiology #F/E/N - PO - Cont. to monitor - Low fat diet # DVT prophylaxis - SCD 2/2 acute bleeding hx (epistaxis, menorrhagia) # Disposition - Admit to observation Jermaine Vaughan MD Visit type - Emergency Visit Emergency Visit: Yes ED Registration Date: 09/17/19 Care time: The patient presented to the Emergency Department on the above date and was hospitalized for further evaluation of their emergent condition. - New Patient This patient is new to me today: Yes Date on this admission: 09/18/19 - Critical Care Critical Care patient: No ATTENDING PHYSICIAN STATEMENT I saw and evaluated the patient. I reviewed the resident's note and discussed the case with the resident. I agree with the resident's findings and plan as documented. SUBJECTIVE: OBJECTIVE: ASSESSMENT AND PLAN:
[2019-09-18] MEDS ORDERED: LEVOTHYROXINE NA 150 MCG TABLET PO SCH (07:00)
[2019-09-18 07:19] LABS: BASO % 0.5 % (0-2.0); EOS % 2.9 % (0-4.5); HEMATOCRIT 38.3 % (32.4-45.2); HEMOGLOBIN 12.9 GM/dL (10.7-15.3); LYMPH % 38.3 % (8-40); MCH 30.3 pg (25.7-33.7); MCHC 33.6 g/dl (32.0-36.0); MEAN CELL VOLUME 90.2 fl (80-96); MEAN PLT VOLUME 9.3 fl (7.5-11.1); MONO % 8.9 % (3.8-10.2); NEUT % 49.4 % (42.8-82.8); PLATELET COUNT 224 K/MM3 (134-434); RBC 4.24 M/mm3 (3.60-5.2); RDW 13.4 % (11.6-15.6); WHITE BLOOD COUNT 5.8 K/mm3 (4.0-10.0)
[2019-09-18 07:50] LABS: ANION GAP 5 MMOL/L (8-16); BLOOD UREA NITROGEN 12.5 mg/dL (7-18); CALCIUM 9.1 mg/dL (8.5-10.1); CHLORIDE 110 mmol/L (98-107); CO2 26 mmol/L (21-32); CREATININE 0.8 mg/dL (0.55-1.3); GLUCOSE,RANDOM 92 mg/dL (74-106); MAGNESIUM 2.4 mg/dL (1.8-2.4); PHOSPHOROUS 4.6 mg/dL (2.5-4.9); POTASSIUM 4.4 mmol/L (3.5-5.1); SODIUM 142 mmol/L (136-145)
--- NOTE | 2019-09-18 08:48 | CON.NEURO ---
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), Migraine ...LMP: 06/04/16 Endocrine: Yes: Hypothyroidism - Past Surgical History Past Surgical History: Yes: Cholecystectomy (2008) - Alcohol/Substance Use Hx Alcohol Use: No - Smoking History Smoking history: Never smoked Have you smoked in the past 12 months: No Aproximately how many cigarettes per day: 0 - Social History History of Recent Travel: No Home Medications - Allergies Allergies/Adverse Reactions: Allergies Allergy/AdvReac Type Severity Reaction Status Date / Time amoxicillin Allergy Verified 09/17/19 19:05 clindamycin Allergy Verified 09/17/19 19:05 - Home Medications Home Medications: Ambulatory Orders Levothyroxine [Synthroid -] 150 mcg PO DAILY 09/17/19 Physical Exam-Neuro Vital Signs: Vital Signs Temperature 97.5 F L 09/17/19 19:00 Pulse Rate 55 L 09/18/19 05:13 Respiratory Rate 18 09/18/19 05:13 Blood Pressure 118/79 09/18/19 05:13 O2 Sat by Pulse Oximetry (%) 98 09/18/19 05:13 Labs: CBC, BMP 09/18/19 06:36 09/18/19 06:36 INR, PTT INR 0.98 (0.83-1.09) 09/17/19 19:17 Assessment/Plan cc Transient left arm weakness HPI 34 year old female history of hypothyroidism , ? stroke( left sided weakness resolved). Patient has chest pain and felt left arm weakness, which is resolved. She has ct head it unremarkable. She denies taking aspirin and statin. She see DR Raman and was prescribed aspirin but she is not taking. 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 She also have chest pain yetsterday. PAST MEDICAL HISTORY: Hypothyroidism and CVA (2016 initially LEFT sided weakness but now no residual deficit) PAST SURGICAL HISTORY: Social History: Smoking: Alcohol: Drugs: Allergies: Amoxicillin Allergy (Verified 09/17/19 19:05). Clindamycin Allergy ( Verified 09/17/19 19:05) HOME MEDICATIONS: Medication Instructions Recorded Levothyroxine [Synthroid -] 150 mcg PO DAILY 09/17/19 ROS,FH,SH reviewed in chart NEUROLOGICAL EXAMINATION Alert oriented x 3, speech is normal, neck is supple, vss eomi, pupils reactive no face asymmetry moving all ext sensation is normal ct head is normal mri of brain and carotid ultrasound done in nov 2018 was normal Assessment/Plan 34 year old female history of ? stroke and hypothyrodism, came with chest pain with subjective left arm weakness, and weakness resolved. Patient had extensive work up done and was not given statin and she was given aspirin but not taking unlikley to be stroke, consider panic reaction Plan: no further work up needed from neurological point of view can be discharged and follow up with dr raman Thanking you so much Douglas Arceo MD
[2019-09-18] MEDS ORDERED: ASPIRIN 81 MG CHEWABLE TABLETS PO SCH (10:00)
--- NOTE | 2019-09-18 10:03 | CONSULT ---
Admitting History and Physical - Primary Care Physician PCP: Cely Tabares - Admission History of Present Illness: 34 y/o female PMH hypothyroidism and CVA (2016 initially LEFT sided weakness but now no residual deficit) c/o CP. H/o CVA and similar current presentation with LEFT sided weakness, which resolved in ED. NEGATIVE head Ct. CP with NEGATIVE CXR and NEGATIVE trop x1. 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), Migraine ...LMP: 06/04/16 Endocrine: Yes: Hypothyroidism - Past Surgical History Past Surgical History: Yes: Cholecystectomy (2008) - Smoking History Smoking history: Never smoked Have you smoked in the past 12 months: No Aproximately how many cigarettes per day: 0 - Alcohol/Substance Use Hx Alcohol Use: No - Social History History of Recent Travel: No History - Admission Reason For Visit: WEAKNESS OF LEFT SIDE OF BODY/CHEST PAIN - Diagnostics X-ray: Report Reviewed CT Scan: Report Reviewed - General Mental Status: Alert and Oriented, Awake and Alert, Able to Follow Commands Attention: Intact Ability to Follow Directions: Excellent Head/Neck Control: WFL - Hearing Hearing: Normal Speech Evaluation - Communication Primary Language: IRISH Communication: Yes: Within Normal Limits Oral Expression Ability: Yes: No Impairment - Speech Production Able to Make Needs Known: Yes: WNL Intelligibility: Yes: WNL - Speech Characteristics Voice Loudness: Normal Voice Pitch: Yes: Normal Voice Phonatory-based Quality: Yes: Normal Speech Pattern: Normal Speech Clarity: < 100% Nasal Resonance: Normal Articulation: Yes: Precise Rate of Speech: Intact - Language/Auditory Comprehension Follows: Yes: 2 Stage Simple Commands - Language/Verbal Expression Able to Respond to Simple Queries: Yes: WNL Able to Communicate Wants and Needs: Yes: WNL Functional Communication Status: Yes: WNL - Memory/Perception intermediate card tender Memory: Yes: WNL Short Term Memory: Yes: WNL - Swallow Evaluation/Bedside Assessment Current Nutritional Intake: Regular, Thin Liquids Oral Secretions: Yes: WFL Dentition: Yes: Adequate Facial Symmetry at Rest: Symmetrical Facial Symmetry on Retraction: Symmetrical Sensation: Normal Against Resistance Opening: Normal Against Resistance Closing: Normal Pucker Lips: Normal Smile: Normal Lingual Movement: Normal, Symmetric Lingual Speed of Movement: Normal Lingual Movement Strgth Against Opposition: Normal Lingual Movement Characteristics: Normal Velopharyngeal Movement: Normal Laryngeal Elevation: WFL Laryngeal Movement: Able to Palpate Rate of Intake: WFL Bolus Size: WFL Labial Seal: WFL Chewing: WFL Oral Prep Time: WFL A-P Transit: WFL Pocketing: None Timing of Swallow: WFL Coughing/Throat Clear: No Change in Voice: No Recommendations - Speech Evaluation, Impression/Plan Impression: sp/sw/lang/cognition intact - Dysphagia Impressions/Plan Swallowing Skills: WFL Dysphagia Impressions: No Impairment *Silent aspiration: cannot be R/O at bedside - Recommendations Diet Consistency: Regular Medication Administration: Whole with water Liquids: Thin Liquids
--- NOTE | 2019-09-18 10:47 | EKG ---
Test Reason : Blood Pressure : / mmHG Vent. Rate : 056 BPM Atrial Rate : 056 BPM P-R Int : 128 ms QRS Dur : 092 ms QT Int : 416 ms P-R-T Axes : 054 055 043 degrees QTc Int : 401 ms SINUS BRADYCARDIA INCOMPLETE RIGHT BUNDLE BRANCH BLOCK BORDERLINE ECG WHEN COMPARED WITH ECG OF 10-DEC-2018 11:10, NO SIGNIFICANT CHANGE WAS FOUND Confirmed by JOHN PAUL BROWN, KRISTI ([id number]) on 09/18/2019 10:46:58 AM Referred By: Confirmed By:KRISTI COKER MD
--- NOTE | 2019-09-18 13:59 | CON.CARD ---
Cardiology Consult (text) - Consultation Consultation Note: cc: cp hpi: 34 f hx hypothyroid, cva 2016, here with cp. Feeling well until yesterday when noticed left chest achey pain. Pounding, worse with deep breaths. No sob, palps, dizzy loc pnd orthopnea le edema. CP less today. pmh: per hpi psh: cholecystectomy social: no tob fam: no premature cad, scd ros: per hpi; all others nl meds: Home Medications Medication Instructions Recorded Levothyroxine [Synthroid -] 150 mcg PO DAILY 09/17/19 pe: Vital Signs Period Temp Pulse Resp BP Sys/Vargas Pulse Ox Last 24 Hr 97.5 F-98.1 F 54-65 18-20 106-128/73-95 98-100 nad no jvd rrr s1s2 no mrg cta bl nl eff aao3 no le e/c/c abd nt nd pos bs no jaundice diaphoresis pos dp pt no carotid bruits Laboratory Last Values WBC 5.8 K/mm3 (4.0-10.0) 09/18/19 06:36 RBC 4.24 M/mm3 (3.60-5.2) 09/18/19 06:36 Hgb 12.9 GM/dL (10.7-15.3) 09/18/19 06:36 Hct 38.3 % (32.4-45.2) 09/18/19 06:36 MCV 90.2 fl (80-96) 09/18/19 06:36 MCH 30.3 pg (25.7-33.7) 09/18/19 06:36 MCHC 33.6 g/dl (32.0-36.0) 09/18/19 06:36 RDW 13.4 % (11.6-15.6) 09/18/19 06:36 Plt Count 224 K/MM3 (134-434) 09/18/19 06:36 MPV 9.3 fl (7.5-11.1) 09/18/19 06:36 Absolute Neuts (auto) 2.9 K/mm3 (1.5-8.0) 09/18/19 06:36 Neutrophils % 49.4 % (42.8-82.8) 09/18/19 06:36 Lymphocytes % 38.3 % (8-40) 09/18/19 06:36 Monocytes % 8.9 % (3.8-10.2) 09/18/19 06:36 Eosinophils % 2.9 % (0-4.5) D 09/18/19 06:36 Basophils % 0.5 % (0-2.0) 09/18/19 06:36 Nucleated RBC % 0 % (0-0) 09/18/19 06:36 PT with INR 11.60 SEC (9.7-13.0) 09/17/19 19:17 INR 0.98 (0.83-1.09) 09/17/19 19:17 PTT (Actin FS) 30.8 SECONDS (25.2-36.5) 09/17/19 19:17 D-Dimer < 215 ng/ml (0-500) 09/18/19 06:36 Sodium 142 mmol/L (136-145) 09/18/19 06:36 Potassium 4.4 mmol/L (3.5-5.1) 09/18/19 06:36 Chloride 110 mmol/L (98-107) H 09/18/19 06:36 Carbon Dioxide 26 mmol/L (21-32) 09/18/19 06:36 Anion Gap 5 MMOL/L (8-16) L 09/18/19 06:36 BUN 12.5 mg/dL (7-18) 09/18/19 06:36 Creatinine 0.8 mg/dL (0.55-1.3) 09/18/19 06:36 Est GFR (CKD-EPI)AfAm 109.93 09/18/19 06:36 Est GFR (CKD-EPI)NonAf 94.85 09/18/19 06:36 Random Glucose 92 mg/dL (74-106) 09/18/19 06:36 Calcium 9.1 mg/dL (8.5-10.1) 09/18/19 06:36 Phosphorus 4.6 mg/dL (2.5-4.9) 09/18/19 06:36 Magnesium 2.4 mg/dL (1.8-2.4) 09/18/19 06:36 Total Bilirubin 0.3 mg/dL (0.2-1) 09/17/19 19:15 AST 13 U/L (15-37) L 09/17/19 19:15 ALT 13 U/L (13-61) 09/17/19 19:15 Alkaline Phosphatase 74 U/L (45-117) 09/17/19 19:15 Creatine Kinase 50 U/L (26-192) 09/18/19 06:36 Troponin I < 0.02 ng/ml (0.00-0.05) 09/18/19 06:36 Total Protein 7.4 g/dl (6.4-8.2) 09/17/19 19:15 Albumin 3.9 g/dl (3.4-5.0) 09/17/19 19:15 Triglycerides 216 mg/dL (0-150) H 09/17/19 19:15 Cholesterol 172 mg/dL (50-200) 09/17/19 19:15 Total LDL Cholesterol 101 mg/dL (5-100) H 09/17/19 19:15 HDL Cholesterol 53 mg/dL (40-60) 09/17/19 19:15 Urine Color Yellow 09/17/19 20:05 Urine Appearance Clear 09/17/19 20:05 Urine pH 6.5 (5.0-8.0) 09/17/19 20:05 Ur Specific [place] 1.012 (1.010-1.035) 09/17/19 20:05 Urine Protein Negative (NEGATIVE) 09/17/19 20:05 Urine Glucose (UA) Negative (NEGATIVE) 09/17/19 20:05 Urine Ketones Negative (NEGATIVE) 09/17/19 20:05 Urine Blood Negative (NEGATIVE) 09/17/19 20:05 Urine Nitrite Negative (NEGATIVE) 09/17/19 20:05 Urine Bilirubin Negative (NEGATIVE) 09/17/19 20:05 Urine Urobilinogen 0.2 mg/dL (0.2-1.0) 09/17/19 20:05 Ur Leukocyte Esterase Negative (NEGATIVE) 09/17/19 20:05 Urine HCG, Qual Negative 09/17/19 20:05 Blood Type O POSITIVE 09/17/19 19:17 Antibody Screen Negative 09/17/19 19:17 ecg: sr nl intervals no ischemic changes cxr: clear lungs echo 06/2016: nl lv/rv, no sig valve path carotids 11/2018: no sig stenosis a/p: 34 f hx hypothyroid, cva 2015, here with cp. cp: -atypical cp, some pleuritic features, does not seem cardiac -trops negx2, no signs acs -ecg unremarkable -pt reports nl stress test last year -echo pending, if benign then ok for dc from cardiac pov with outpt f/u cva: -recent carotids unremarkable -seen by neuro here, no acute issues hypothyroid: -cont synthroid
--- NOTE | 2019-09-18 16:26 | ECHO ---
Name: JULIA LYONS Exam:Adult Echocardiogram Study Date: 09/18/2019 02:35 PM Age: 34 yrs Height: 63 in Weight: 149 lb BSA: 1.7 m2 MMode/2D Measurements & Calculations IVSd: 0.70 cm Ao root diam: 3.1 cm LVIDd: 4.6 cm LA dimension: 2.5 cm LVIDs: 2.9 cm ACS: 2.1 cm LVPWd: 0.76 cm IVSs: 1.0 cm LVPWs: 0.98 cm EDV(Teich): 96.6 ml ESV(Teich): 32.1 ml Doppler Measurements & Calculations MV E max chi: 65.2 cm/sec Ao V2 max: 112.7 cm/sec MV A max chi: 46.2 cm/sec Ao max P.1 mmHg MV E/A: 1.4 Ao V2 mean: 80.2 cm/sec Ao mean P.9 mmHg Ao V2 VTI: 22.0 cm Med Peak E' Chi: 10.6 cm/sec Med E/e': 6.1 Lat Peak E' Chi: 16.0 cm/sec Lat E/e': 4.1 Procedure A two-dimensional transthoracic echocardiogram with color flow and Doppler was performed. Left Ventricle The left ventricular size, thickness and function are normal. The left ventricular ejection fraction is normal. Left Ventricular Filling pattern is normal for age. The left ventricular wall motion is pepito l. Right Ventricle The right ventricle is not well visualized. Atria Normal left and right atrial size and function. Mitral Valve The mitral valve is normal in structure and function. There is no mitral valve stenosis. There is tra ce mitral regurgitation. Tricuspid Valve The tricuspid valve is normal in structure and function. There is no tricuspid stenosis. There was insufficient TR detected to calculate RV systolic pressure. Aortic Valve The aortic valve is normal in structure and function. No hemodynamically significant valvular aortic stenosis. No aortic regurgitation is present. Pulmonic Valve The pulmonic valve is not well visualized. Great Vessels The aortic root is normal size. Pericardium/Pleura There is no pericardial effusion. Interpretation Summary The left ventricular size, thickness and function are normal The left ventricular ejection fraction is normal. The left ventricular wall motion is normal. Left Ventricular Filling pattern is normal for age. There is trace mitral regurgitation. There was insufficient TR detected to calculate RV systolic pressure. MD Brayden Suárez 09/18/2019 04:26 PM
--- NOTE | 2019-09-18 16:31 | DS ---
Physical Exam: SUBJECTIVE: Patient seen and examined OBJECTIVE: Vital Signs Period Temp Pulse Resp BP Sys/Vargas Pulse Ox Last 24 Hr 97.5 F-98.1 F 54-65 18-20 106-128/73-95 98-100 PHYSICAL EXAM GENERAL: The patient is awake, alert, and fully oriented, in no acute distress. HEAD: Normal with no signs of trauma. EYES: PERRL, extraocular movements intact, sclera anicteric, conjunctiva clear. ENT: Ears normal, nares patent, oropharynx clear without exudates, moist mucous membranes. NECK: Trachea midline, full range of motion, supple. LUNGS: Breath sounds equal, clear to auscultation bilaterally, no wheezes, no crackles, no accessory muscle use. HEART: Regular rate and rhythm, S1, S2 without murmur, rub or gallop. ABDOMEN: Soft, nontender, nondistended, normoactive bowel sounds, no guarding, no rebound, no hepatosplenomegaly, no masses. EXTREMITIES: 2+ pulses, warm, well-perfused, no edema. NEUROLOGICAL: Cranial nerves II through XII grossly intact. Normal speech, gait not observed. PSYCH: Normal mood, normal affect. SKIN: Warm, dry, normal turgor, no rashes or lesions noted. LABS Laboratory Results - last 24 hr 09/17/19 09/17/19 09/17/19 19:15 19:15 19:17 WBC RBC Hgb Hct MCV MCH MCHC RDW Plt Count MPV Absolute Neuts (auto) Neutrophils % Lymphocytes % Monocytes % Eosinophils % Basophils % Nucleated RBC % PT with INR 11.60 INR 0.98 PTT (Actin FS) 30.8 D-Dimer Sodium 139 Potassium 3.9 Chloride 110 H Carbon Dioxide 22 Anion Gap 8 BUN 16.6 Creatinine 0.8 Est GFR (CKD-EPI)AfAm 109.93 Est GFR (CKD-EPI)NonAf 94.85 Random Glucose 84 Calcium 9.2 Phosphorus Magnesium Total Bilirubin 0.3 AST 13 L ALT 13 Alkaline Phosphatase 74 Creatine Kinase 71 Troponin I < 0.02 Total Protein 7.4 Albumin 3.9 Triglycerides 216 H Cholesterol Cancelled 172 Total LDL Cholesterol 101 H HDL Cholesterol 53 Urine Color Urine Appearance Urine pH Ur Specific Mchenry Urine Protein Urine Glucose (UA) Urine Ketones Urine Blood Urine Nitrite Urine Bilirubin Urine Urobilinogen Ur Leukocyte Esterase Urine HCG, Qual Blood Type Antibody Screen 09/17/19 09/17/19 09/17/19 19:17 19:17 20:05 WBC 8.2 RBC 4.38 Hgb 13.3 Hct 39.4 MCV 90.0 MCH 30.3 MCHC 33.7 RDW 13.5 Plt Count 242 MPV 9.4 Absolute Neuts (auto) 4.1 Neutrophils % 50.9 Lymphocytes % 38.8 D Monocytes % 8.0 Eosinophils % 1.4 Basophils % 0.9 D Nucleated RBC % 0 PT with INR INR PTT (Actin FS) D-Dimer Sodium Potassium Chloride Carbon Dioxide Anion Gap BUN Creatinine Est GFR (CKD-EPI)AfAm Est GFR (CKD-EPI)NonAf Random Glucose Calcium Phosphorus Magnesium Total Bilirubin AST ALT Alkaline Phosphatase Creatine Kinase Troponin I Total Protein Albumin Triglycerides Cholesterol Total LDL Cholesterol HDL Cholesterol Urine Color Yellow Urine Appearance Clear Urine pH 6.5 Ur Specific Mchenry 1.012 Urine Protein Negative Urine Glucose (UA) Negative Urine Ketones Negative Urine Blood Negative Urine Nitrite Negative Urine Bilirubin Negative Urine Urobilinogen 0.2 Ur Leukocyte Esterase Negative Urine HCG, Qual Blood Type O POSITIVE Antibody Screen Negative 09/17/19 09/18/19 09/18/19 20:05 06:36 06:36 WBC 5.8 RBC 4.24 Hgb 12.9 Hct 38.3 MCV 90.2 MCH 30.3 MCHC 33.6 RDW 13.4 Plt Count 224 MPV 9.3 Absolute Neuts (auto) 2.9 Neutrophils % 49.4 Lymphocytes % 38.3 Monocytes % 8.9 Eosinophils % 2.9 D Basophils % 0.5 Nucleated RBC % 0 PT with INR INR PTT (Actin FS) D-Dimer Sodium 142 Potassium 4.4 Chloride 110 H Carbon Dioxide 26 Anion Gap 5 L BUN 12.5 Creatinine 0.8 Est GFR (CKD-EPI)AfAm 109.93 Est GFR (CKD-EPI)NonAf 94.85 Random Glucose 92 Calcium 9.1 Phosphorus 4.6 Magnesium 2.4 Total Bilirubin AST ALT Alkaline Phosphatase Creatine Kinase 50 Troponin I < 0.02 Total Protein Albumin Triglycerides Cholesterol Total LDL Cholesterol HDL Cholesterol Urine Color Urine Appearance Urine pH Ur Specific Mchenry Urine Protein Urine Glucose (UA) Urine Ketones Urine Blood Urine Nitrite Urine Bilirubin Urine Urobilinogen Ur Leukocyte Esterase Urine HCG, Qual Negative Blood Type Antibody Screen 09/18/19 06:36 WBC RBC Hgb Hct MCV MCH MCHC RDW Plt Count MPV Absolute Neuts (auto) Neutrophils % Lymphocytes % Monocytes % Eosinophils % Basophils % Nucleated RBC % PT with INR INR PTT (Actin FS) D-Dimer < 215 Sodium Potassium Chloride Carbon Dioxide Anion Gap BUN Creatinine Est GFR (CKD-EPI)AfAm Est GFR (CKD-EPI)NonAf Random Glucose Calcium Phosphorus Magnesium Total Bilirubin AST ALT Alkaline Phosphatase Creatine Kinase Troponin I Total Protein Albumin Triglycerides Cholesterol Total LDL Cholesterol HDL Cholesterol Urine Color Urine Appearance Urine pH Ur Specific Mchenry Urine Protein Urine Glucose (UA) Urine Ketones Urine Blood Urine Nitrite Urine Bilirubin Urine Urobilinogen Ur Leukocyte Esterase Urine HCG, Qual Blood Type Antibody Screen HOSPITAL COURSE: Date of Admission:09/18/19 Date of Discharge: 09/18/19 Discharge Summary Problems reviewed: Yes Reason For Visit: WEAKNESS OF LEFT SIDE OF BODY/CHEST PAIN Current Active Problems Chest pain (Acute) Left-sided weakness (Acute) Condition: Improved - Instructions Referrals: Neymar Ortiz MD [Primary Care Provider] - Disposition: HOME - Home Medications Comprehensive Discharge Medication List: Ambulatory Orders Levothyroxine [Synthroid -] 150 mcg PO DAILY 09/17/19 Aspirin [ASA -] 81 mg PO DAILY tab.chew 09/18/19 Atorvastatin Ca [Lipitor] 40 mg PO HS #90 tablet 09/18/19
[2019-09-18 17:12] VITALS: BP 109/80; PULSE 62; TEMP 97.8
[2019-09-18] MEDS ORDERED: ATORVASTATIN CA 40 MG TABLET (FP) PO SCH (22:00)
== END 2019-09-18 17:19 | disposition home or self-care (01) ==
LOC: JER 18:51 → JERBED 21:11 → INTOOBSV 21:11 → UNDOADMOB 21:11 → JERBED 09-18 12:25
PROVIDERS: ADMIT Internal Medicine; ATTEND Nurse Practitioner Family
PROC: 3E033NZ Introduction of Analgesics, Hypnotics, Sedatives into Peripheral Vein, Percutaneous Approach (ICD-10-PCS; principal; 2019-09-18)
PROC: 3E0333Z Introduction of Anti-inflammatory into Peripheral Vein, Percutaneous Approach (ICD-10-PCS; 2019-09-18)
DX: R07.9 Chest pain, unspecified (principal); G81.94 Hemiplegia, unspecified affecting left nondominant side; E03.9 Hypothyroidism, unspecified; E78.5 Hyperlipidemia, unspecified; Q25.72 Congenital pulmonary arteriovenous malformation; Z86.73 Personal history of transient ischemic attack (TIA), and cerebral infarction without residual deficits; Z90.49 Acquired absence of other specified parts of digestive tract; Z88.1 Allergy status to other antibiotic agents; Z88.0 Allergy status to penicillin
CPT/HCPCS: 36415; 70450-TC; 71045-TC-FY; 76856-TC; 80048; 80053; 81003; 82465; 82550; 83718; 83721; 83735; 84100; 84478; 84484; 84703; 85025; 85379; 85610; 85730; 86850; 86900; 86901; 87086; 93005; 93010; 93306-TC; 93970-TC; 96374; 96375; 99285-25; G0378; J0131

== ENCOUNTER 2020-01-01 23:37 | Emergency (ER) | payer OTHER ==
--- NOTE | 2020-01-01 23:48 | PDOC ---
History of Present Illness - General Stated Complaint: ABDOMINAL PAIN History Source: Patient, Old Records - History of Present Illness Initial Comments: 01/01/20 23:47 34y F with PMH of CVA (2016 with no deficits), hypothyroidism BIBA for abdominal pain and nausea after taking Tylenol with codeine today at 10pm. She says she had an extraction and root canal and was prescribed Tylenol #3 and took the medication for the first time today. She has been taking 1g of Tylenol every 6-8 hours with last dose at 1pm today. She endorses diffuse abdominal pain feels like a cramp, does not radiate, worsened by laying down. Denies n/v/d, chills, fever, chest pain, sob weakness. PMD: Lo GI: Lantin PMH: see hpi PSH: cholecystectomy Meds: Allergies: amoxicillin Social: Past History - Past Medical History Allergies/Adverse Reactions: Allergies Allergy/AdvReac Type Severity Reaction Status Date / Time amoxicillin Allergy Verified 01/02/20 01:44 clindamycin Allergy Verified 01/02/20 01:44 Home Medications: Ambulatory Orders Levothyroxine [Synthroid -] 150 mcg PO DAILY 09/17/19 Aspirin [ASA -] 81 mg PO DAILY tab.chew 09/18/19 Atorvastatin Ca [Lipitor] 40 mg PO HS #90 tablet 09/18/19 Famotidine [Pepcid -] 20 mg PO BID #14 tablet 01/02/20 Ondansetron [Zofran *Odt*] 4 mg SL BID #10 od.tablet 01/02/20 Anemia: No Asthma: No Cancer: No Cardiac Disorders: No CVA: Yes (2015-NO RESIDUAL) COPD: No CHF: No Dementia: No Diabetes: No GI Disorders: Yes (CHOLECYSTECTOMY) Disorders: No HTN: No Hypercholesterolemia: No Liver Disease: No Seizures: No Thyroid Disease: Yes (HYPO) - Surgical History Cholecystectomy: Yes (04/30) - Reproductive History Spontaneous : 2 - Immunization History Immunization Up to Date: No - Psycho Social/Smoking Cessation Hx Smoking Status: No Smoking History: Never smoked Have you smoked in the past 12 months: No Number of Cigarettes Smoked Daily: 0 Hx Alcohol Use: No Drug/Substance Use Hx: No Substance Use Type: None Hx Substance Use Treatment: No *Physical Exam - Physical Exam General Appearance: Yes: Nourished, Appropriately Dressed, Mild Distress HEENT: positive: EOMI. negative: Scleral Icterus (R), Scleral Icterus (L) Neck: positive: Trachea midline, Supple Respiratory/Chest: positive: Lungs Clear, Normal Breath Sounds. negative: Crackles, Rales, Rhonchi, Stridor, Wheezing Cardiovascular: positive: Regular Rhythm, Regular Rate, S1, S2. negative: Edema, JVD, Murmur Vascular Pulses: Dorsalis-Pedis (R): 2+, Doralis-Pedis (L): 2+ Gastrointestinal/Abdominal: positive: Normal Bowel Sounds, Soft, Tenderness (epigastric). negative: Guarding, Rebound Musculoskeletal: negative: CVA Tenderness (R), CVA Tenderness (L) Extremity: positive: Normal Capillary Refill Integumentary: positive: Normal Color, Dry, Warm. negative: Jaundice Neurologic: positive: lumpia wrapper maker II-XII NML intact, Fully Oriented, Alert, Normal Mood/Affect, Normal Response, Motor Strength 5/5 ED Treatment Course - LABORATORY CBC & Chemistry Diagram: 01/01/20 00:00 01/01/20 00:00 Medical Decision Making - Medical Decision Making 01/02/20 01:25 34y F presenting with abdominal pain and nausea after taking Tylenol 3. vitals wnl slight epigastric tenderness. no rebound or guarding. no jaundice. ddx includes apap toxicity, drug reaction, gastritis/gerd, will obtain labs, apap level, bchg, lipase -ns, pepcid, zofran. pt feeling better but feels dull ache. no leukocytosis. normal lipase, neg preg, AST 202. apap level <2. will give ofirmev will reassess. pain likely 2/2 codeine. will advise pt to dc that medication. return precautions provided. 01/02/20 02:06 US: Liver: Normal. The liver measures 14.9 cm. Normal directional flow seen in the portal veins. Bile Ducts: Intrahepatic and extrahepatic bile ducts are not dilated. The common bile duct measures 0.3 cm. Gallbladder: Status post cholecystectomy.. Pancreas: The pancreatic head is unremarkable. Right Kidney: No pelvicaliceal dilatation. No stones. The right kidney measures 10.5 cm in length. Discharge - Discharge Information Problems reviewed: Yes Clinical Impression/Diagnosis: Abdominal pain Qualifiers: Abdominal location: unspecified location Qualified Code(s): R10.9 - Unspecified abdominal pain Condition: Improved Disposition: HOME - Admission No - Additional Discharge Information Prescriptions: Famotidine [Pepcid -] 20 mg PO BID #14 tablet Ondansetron [Zofran *Odt*] 4 mg SL BID #10 od.tablet - Follow up/Referral Referrals: Neymar Ortiz MD [Primary Care Provider] - - Patient Discharge Instructions Additional Instructions: You were seen in the ER for abdominal pain. The blood work shows elevated AST bu t the ultrasound is normal. I recommend that you stop taking the Tylenol with codeine. A prescription for Zofran (for nausea) and Pepcid was sent to your pharmacy, take as directed. Follow up with Dr. Flaherty in regards to the AST level. Come back to the ER if you have worsening abdominal pain. Thank you - Post Discharge Activity
[2020-01-01] MEDS ORDERED: FAMOTIDINE 20 MG/50 ML IVPB 20 MG/50 ML MG IVPB ONE (23:53)
[2020-01-01] MEDS ORDERED: ONDANSETRON 4 MG/2 ML VIAL IVPB ONE (23:53)
[2020-01-01] MEDS ORDERED: SODIUM CHLORIDE 1,000 ML IV STA (23:53)
[2020-01-01 23:54] VITALS: BP 158/90; PULSE 72; TEMP 97.8; BMI 26.2
[2020-01-02] MEDS ORDERED: ONDANSETRON 4 MG/2 ML VIAL ONE (00:02)
[2020-01-02] MEDS ORDERED: FAMOTIDINE 20 MG/50 ML IVPB 20 MG/50 ML MG IVPB ONE (00:02)
[2020-01-02 00:08] LABS: BASO % 0.5 % (0-2.0); EOS % 0.6 % (0-4.5); HEMATOCRIT 40.1 % (32.4-45.2); HEMOGLOBIN 13.5 GM/dL (10.7-15.3); LYMPH % 18.9 % (8-40); MCH 29.9 pg (25.7-33.7); MCHC 33.8 g/dl (32.0-36.0); MEAN CELL VOLUME 88.6 fl (80-96); MEAN PLT VOLUME 9.5 fl (7.5-11.1); MONO % 4.2 % (3.8-10.2); NEUT % 75.8 % (42.8-82.8); PLATELET COUNT 197 K/MM3 (134-434); RBC 4.53 M/mm3 (3.60-5.2); RDW 13.5 % (11.6-15.6); WHITE BLOOD COUNT 8.6 K/mm3 (4.0-10.0)
[2020-01-02] MEDS ORDERED: MAG HYDROX/AL HYDROX/SIMETH -MYLANTA- ORAL SUSPENSION PO ONE (00:43)
[2020-01-02] MEDS ORDERED: ACETAMINOPHEN 1000 MG/100 ML VIAL (NON FORMULARY) IVPB ONE ×2 (00:43→01:24)
--- NOTE | 2020-01-02 00:56 | PDOC ---
Documentation entered by Reyna Cohen SCRIBE, acting as scribe for Sugey Delcid DO. Sugey Delcid DO: This documentation has been prepared by the Vicki escoto Brenda, SCRIBE, under my direction and personally reviewed by me in its entirety. I confirm that the documentation accurately reflects all work, treatment, procedures, and medical decision making performed by me. Attending Attestation - Resident Resident Name: Angela Segal - ED Attending Attestation I have performed the following: I have examined & evaluated the patient, The case was reviewed & discussed with the resident, I agree w/resident's findings & plan, Exceptions are as noted - HPI HPI: 01/02/20 00:26 The patient is a 34 year old female with a significant PMH of CVA (2016) and hypothyroidism who presents to the ED BIBA for evaluation of diffuse crampy abdominal pain and nausea. Patient notes that there was an onset of symptoms after taking Tylenol w/ codeine around 10:00pm. She reports that she had a root canal today, and was prescribed the Tylenol. Patients endorses agravation of pain by laying down and does not radiate. The patient denies chest pain, shortness of breath, headache and dizziness. Denies fever, chills, vomiting, diarrhea and constipation. Denies dysuria, frequency, urgency and hematuria. Allergies: Amoxicillin, clindamycin Surgical Hx: cholecystectomy PCP: - Physicial Exam PE: 01/02/20 00:52 GENERAL: Awake, alert, and fully oriented, in no acute distress HEAD: No signs of trauma EYES: PERRLA, EOMI, sclera anicteric, conjunctiva clear ENT: Auricles normal inspection, hearing grossly normal, nares patent, oropharynx clear without exudates. Moist mucosa NECK: Normal ROM, supple, no lymphadenopathy, JVD, or masses LUNGS: Breath sounds equal, clear to auscultation bilaterally. No wheezes, and no crackles HEART: Regular rate and rhythm, normal S1 and S2, no murmurs, rubs or gallops ABDOMEN: (+) mild epigastric tenderness to palpation. Soft, normoactive bowel sounds. No guarding, no rebound. No masses EXTREMITIES: Normal range of motion, no edema. No clubbing or cyanosis. No cords, erythema, or tenderness NEUROLOGICAL: Cranial nerves II through XII grossly intact. Normal speech, normal gait SKIN: Warm, Dry, normal turgor, no rashes or lesions noted. - Medical Decision Making 01/02/20 00:54 a/p: 34yo female with upper abd pain- stabbing pain after taking tylenol w codeine tonight -never had tylenol with codeine before, taking for s/p root canal pain -pt states after taking the meds she developed abd pain and nausea -pt currently states pain improved after zofran and pepcid -pt with mild epigastric pain -pt is s/p fanny -will send labs, will medicate, ivf hydration running, nausea control -will monitor and reassess -suspect pain is an adverse drug reaction to the tylenol #3 01/02/20 01:29 elevated ast will send for ultrasound
[2020-01-02 01:21] LABS: ALBUMIN 3.7 g/dl (3.4-5.0); ALK PHOS 84 U/L (45-117); ANION GAP 11 MMOL/L (8-16); BILIRUBIN,TOTAL 0.6 mg/dL (0.2-1); BLOOD UREA NITROGEN 12.6 mg/dL (7-18); CALCIUM 9.1 mg/dL (8.5-10.1); CHLORIDE 108 mmol/L (98-107); CO2 19 mmol/L (21-32); GLUCOSE,RANDOM 120 mg/dL (74-106); LIPASE 35 U/L (73-393); POTASSIUM 3.9 mmol/L (3.5-5.1); SGOT/AST 202 U/L (15-37); SGPT/ALT 59 U/L (13-61); SODIUM 138 mmol/L (136-145); TOT PROT 7.4 g/dl (6.4-8.2)
[2020-01-02] MEDS ORDERED: ACETAMINOPHEN 500 MG TABLET (FP) PO ONE (01:24)
[2020-01-02] MEDS ORDERED: ACETAMINOPHEN 325 MG TABLET (FP) ONE (01:25)
== END 2020-01-02 02:19 | disposition home or self-care (01) ==
LOC: JER 23:37
PROC: 3E0337Z Introduction of Electrolytic and Water Balance Substance into Peripheral Vein, Percutaneous Approach (ICD-10-PCS; principal; 2020-01-01)
PROC: 3E033GC Introduction of Other Therapeutic Substance into Peripheral Vein, Percutaneous Approach (ICD-10-PCS; 2020-01-01)
DX: R10.9 Unspecified abdominal pain (principal); Z88.8 Allergy status to other drugs, medicaments and biological substances
CPT/HCPCS: 36415; 76705-TC; 80053; 80307; 83690; 84702; 85025; 99284-25; J7030

== ENCOUNTER 2020-09-23 17:50 | Emergency (ER) | payer OTHER ==
[2020-09-23 18:05] VITALS: BP 143/100; PULSE 65; TEMP 97.8; BMI 24.7
[2020-09-23] MEDS ORDERED: ACETAMINOPHEN 500 MG TABLET (FP) PO ONE (19:09)
[2020-09-23] MEDS ORDERED: ACETAMINOPHEN 325 MG TABLET (FP) ONE (19:14)
== END 2020-09-23 19:25 | disposition home or self-care (01) ==
LOC: JER 17:50
DX: R05 Cough (principal)
CPT/HCPCS: 71045-TC-FY; 99284-25; C9803; U0003

== ENCOUNTER 2020-12-04 11:06 | Emergency (ER) | payer OTHER | END 2020-12-04 11:58 | disposition home or self-care (01) | LOC: JVIRT 11:06 | DX: Z20.822 Contact with and (suspected) exposure to COVID-19 (principal) | CPT/HCPCS: C9803; G2012-GT; U0003 ==

== ENCOUNTER 2021-07-12 08:08 | Emergency (ER) | payer OTHER ==
[2021-07-12 08:15] VITALS: BP 119/81; PULSE 70; TEMP 97.4; BMI 25.0
[2021-07-12] MEDS ORDERED: METOCLOPRAMIDE HCL INJECTION 10 MG/2 ML VIAL IVPB ONE (08:41)
[2021-07-12] MEDS ORDERED: KETOROLAC TROMETHAMINE 30 MG/1 ML VIAL IVPUSH ONE (08:41)
[2021-07-12] MEDS ORDERED: METOCLOPRAMIDE HCL INJECTION 10 MG/2 ML VIAL ONE (09:06)
[2021-07-12] MEDS ORDERED: KETOROLAC TROMETHAMINE 30 MG/1 ML VIAL ONE (09:06)
[2021-07-12 09:17] LABS: BASO % 0.2 % (0-2.0); EOS % 1.2 % (0-4.5); HEMATOCRIT 39.5 % (32.4-45.2); HEMOGLOBIN 13.6 GM/dL (10.7-15.3); LYMPH % 29.3 % (8-40); MCH 30.4 pg (25.7-33.7); MCHC 34.3 g/dl (32.0-36.0); MEAN CELL VOLUME 88.6 fl (80-96); MEAN PLT VOLUME 9.1 fl (7.5-11.1); MONO % 6.6 % (3.8-10.2); NEUT % 62.7 % (42.8-82.8); PLATELET COUNT 245 10^3/uL (134-434); RBC 4.46 M/mm3 (3.60-5.2); RDW 13.9 % (11.6-15.6); WHITE BLOOD COUNT 6.3 K/mm3 (4.0-10.0)
[2021-07-12 09:26] LABS: HCG,QUALITATIVE URINE Negative
[2021-07-12 09:46] LABS: ALBUMIN 3.7 g/dl (3.4-5.0); BLOOD UREA NITROGEN 13.7 mg/dL (7-18)
[2021-07-12 09:48] LABS: CREATININE 0.8 mg/dL (0.55-1.3)
[2021-07-12 09:49] LABS: BILIRUBIN,TOTAL 0.7 mg/dL (0.2-1); PH,URINE 5.5 (5.0-8.0); URINE APPEARANCE CLEAR; URINE BILIRUBIN NEGATIVE (NEGATIVE); URINE COLOR YELLOW; URINE GLUCOSE (UA) NEGATIVE (NEGATIVE); URINE KETONE NEGATIVE (NEGATIVE); URINE LEUK ESTERASE NEGATIVE (NEGATIVE); URINE NITRITE NEGATIVE (NEGATIVE); URINE PROTEIN NEGATIVE (NEGATIVE); URINE UROBILINOGEN 0.2 mg/dL (0.2-1.0)
[2021-07-12 09:50] LABS: TOT PROT 7.4 g/dl (6.4-8.2)
[2021-07-12] MEDS ORDERED: ACETAMINOPHEN 500 MG TABLET (FP) PO ONE (11:37)
[2021-07-12] MEDS ORDERED: ACETAMINOPHEN 325 MG TABLET (FP) ONE (11:48)
== END 2021-07-12 11:55 | disposition home or self-care (01) ==
LOC: JER 08:08
PROC: 3E0333Z Introduction of Anti-inflammatory into Peripheral Vein, Percutaneous Approach (ICD-10-PCS; principal; 2021-07-12)
PROC: 3E033GC Introduction of Other Therapeutic Substance into Peripheral Vein, Percutaneous Approach (ICD-10-PCS; 2021-07-12)
DX: R10.11 Right upper quadrant pain (principal); R10.31 Right lower quadrant pain
CPT/HCPCS: 36415; 74177-TC; 80053; 81003; 83690; 84703; 85025; 87086; 87491; 87591; 99285-25; Q9967

== ENCOUNTER 2021-08-04 18:47 | Emergency (ER) | payer OTHER ==
[2021-08-04 19:45] VITALS: BP 133/65; PULSE 65; TEMP 98.1; BMI 25.0
[2021-08-04] MEDS ORDERED: ACETAMINOPHEN 500 MG TABLET (FP) PO ONE (20:29)
[2021-08-04] MEDS ORDERED: ACETAMINOPHEN 325 MG TABLET (FP) ONE (20:44)
[2021-08-04 21:55] LABS: BASO % 0.3 % (0-2.0); EOS % 1.8 % (0-4.5); HEMATOCRIT 38.6 % (32.4-45.2); HEMOGLOBIN 12.9 GM/dL (10.7-15.3); LYMPH % 37.9 % (8-40); MCH 29.4 pg (25.7-33.7); MCHC 33.5 g/dl (32.0-36.0); MEAN CELL VOLUME 87.8 fl (80-96); MEAN PLT VOLUME 9.2 fl (7.5-11.1); MONO % 7.3 % (3.8-10.2); NEUT % 52.7 % (42.8-82.8); PLATELET COUNT 234 10^3/uL (134-434); RDW 14.7 % (11.6-15.6); WHITE BLOOD COUNT 7.6 K/mm3 (4.0-10.0)
[2021-08-04 21:56] LABS: URINE APPEARANCE CLEAR; URINE BILIRUBIN NEGATIVE (NEGATIVE); URINE COLOR YELLOW; URINE GLUCOSE (UA) NEGATIVE (NEGATIVE); URINE KETONE NEGATIVE (NEGATIVE); URINE LEUK ESTERASE NEGATIVE (NEGATIVE); URINE NITRITE NEGATIVE (NEGATIVE); URINE PROTEIN NEGATIVE (NEGATIVE); URINE UROBILINOGEN 0.2 mg/dL (0.2-1.0)
[2021-08-04 21:59] LABS: HCG,QUALITATIVE URINE Negative
[2021-08-04 22:40] LABS: CALCIUM 8.7 mg/dL (8.5-10.1)
[2021-08-04 22:41] LABS: ALBUMIN 3.6 g/dl (3.4-5.0); BLOOD UREA NITROGEN 20.7 mg/dL (7-18)
[2021-08-04 22:46] LABS: BILIRUBIN,TOTAL 0.6 mg/dL (0.2-1); TOT PROT 7.4 g/dl (6.4-8.2)
== END 2021-08-05 01:31 | disposition home or self-care (01) ==
LOC: JER 18:47
DX: K62.89 Other specified diseases of anus and rectum (principal)
CPT/HCPCS: 36415; 72132-TC; 74177-TC; 80053; 81003; 84703; 85025; 87086; 99284-25; C9803; Q9967; U0003; U0005

== ENCOUNTER 2022-06-20 20:24 | Emergency (ER) | payer OTHER ==
[2022-06-20 21:07] VITALS: PULSE 61; BMI 24.7
[2022-06-20] MEDS ORDERED: SODIUM CHLORIDE 0.9% 500 ML INFUS.BAG IV ONE (22:47)
[2022-06-20] MEDS ORDERED: ONDANSETRON 4 MG/2 ML VIAL ONE (23:03)
[2022-06-20 23:04] LABS: PH,URINE 6.5 (5.0-8.0); URINE APPEARANCE CLEAR; URINE BILIRUBIN NEGATIVE (NEGATIVE); URINE COLOR YELLOW; URINE GLUCOSE (UA) NEGATIVE (NEGATIVE); URINE KETONE NEGATIVE (NEGATIVE); URINE LEUK ESTERASE NEGATIVE (NEGATIVE); URINE NITRITE NEGATIVE (NEGATIVE); URINE PROTEIN NEGATIVE (NEGATIVE); URINE UROBILINOGEN 0.2 mg/dL (0.2-1.0)
[2022-06-20] MEDS: ONDANSETRON 4 MG/2 ML VIAL IVPUSH ONE ×2 (23:10→23:26)
[2022-06-20] MEDS ORDERED: ACETAMINOPHEN 1000 MG/100 ML BAG IVPB ONE (23:13)
[2022-06-20 23:14] LABS: BASO % 0.5 % (0-2.0); EOS % 1.2 % (0-4.5); HEMATOCRIT 41.6 % (32.4-45.2); LYMPH % 28.1 % (8-40); MCH 29.6 pg (25.7-33.7); MCHC 33.6 g/dl (32.0-36.0); MEAN CELL VOLUME 88.3 fl (80-96); MEAN PLT VOLUME 8.7 fl (7.5-11.1); MONO % 6.3 % (3.8-10.2); NEUT % 63.9 % (42.8-82.8); PLATELET COUNT 247 10^3/uL (134-434); RBC 4.72 M/mm3 (3.60-5.2); RDW 14.9 % (11.6-15.6); WHITE BLOOD COUNT 10.6 K/mm3 (4.0-10.0)
[2022-06-20 23:33] LABS: CALCIUM 9.3 mg/dL (8.5-10.1)
[2022-06-20 23:34] LABS: BLOOD UREA NITROGEN 11.6 mg/dL (7-18)
[2022-06-20 23:38] LABS: CREATININE 0.8 mg/dL (0.55-1.3); TOT PROT 7.6 g/dl (6.4-8.2)
[2022-06-20] MEDS ORDERED: ACETAMINOPHEN INJECTION 100 ML IVPB ONE (23:41)
[2022-06-21 01:38] VITALS: BP 126/70; RESP 20; TEMP 98.2
== END 2022-06-21 03:08 | disposition home or self-care (01) ==
LOC: JER 20:24
PROC: 3E0333Z Introduction of Anti-inflammatory into Peripheral Vein, Percutaneous Approach (ICD-10-PCS; principal; 2022-06-20)
DX: R10.30 Lower abdominal pain, unspecified (principal)
CPT/HCPCS: 36415; 74177-TC; 80053; 81003; 84703; 85025; 87086; 87491; 87591; 99285-25; Q9967

== ENCOUNTER 2022-09-28 11:05 | Observation (INO) | payer OTHER ==
[2022-09-28 11:12] VITALS: BMI 27.6
[2022-09-28] MEDS ORDERED: DEXTROSE 50%-WATER - 25 GM/50 ML VIAL IVPUSH ONE (11:12)
[2022-09-28] MEDS ORDERED: DEXTROSE 50%-WATER 25 GM/50 ML DISP.SYRIN ONE (11:15)
[2022-09-28] MEDS ORDERED: SODIUM CHLORIDE 1,000 ML IV SCH (11:15)
[2022-09-28 12:23] LABS: BASO % 0.5 % (0-2.0); EOS % 0.4 % (0-4.5); HEMATOCRIT 42.3 % (32.4-45.2); HEMOGLOBIN 14.2 GM/dL (10.7-15.3); MCH 29.6 pg (25.7-33.7); MCHC 33.4 g/dl (32.0-36.0); MEAN CELL VOLUME 88.6 fl (80-96); MEAN PLT VOLUME 8.9 fl (7.5-11.1); MONO % 4.8 % (3.8-10.2); NEUT % 77.3 % (42.8-82.8); PLATELET COUNT 374 10^3/uL (134-434); RBC 4.78 M/mm3 (3.60-5.2); RDW 13.9 % (11.6-15.6); WHITE BLOOD COUNT 10.3 K/mm3 (4.0-10.0)
[2022-09-28 12:29] LABS: INR 0.96 (0.83-1.09)
[2022-09-28 12:32] LABS: ACTIVATED PTT 25.4 SECONDS (25.2-36.5)
[2022-09-28 12:37] LABS: CHLORIDE 108 mmol/L (98-107); SODIUM 140 mmol/L (136-145)
[2022-09-28 12:38] LABS: CALCIUM 9.6 mg/dL (8.5-10.1)
[2022-09-28 12:39] LABS: ALBUMIN 3.9 g/dl (3.4-5.0); ANION GAP 12 MMOL/L (8-16); CO2 21 mmol/L (21-32)
[2022-09-28 12:40] LABS: GLUCOSE,RANDOM 87 mg/dL (74-106)
[2022-09-28 12:41] LABS: BLOOD UREA NITROGEN 15.4 mg/dL (7-18)
[2022-09-28 12:42] LABS: CREATININE 0.9 mg/dL (0.55-1.3); SGOT/AST 28 U/L (15-37); SGPT/ALT 21 U/L (13-61)
[2022-09-28 12:44] LABS: CHOLESTEROL 243 mg/dL (50-200); TOT PROT 7.7 g/dl (6.4-8.2); TRIGLYCERIDES 136 mg/dL (0-150)
[2022-09-28 12:45] LABS: LDL CHOLESTEROL (ONLY SJRH) 159 mg/dL (5-100)
[2022-09-28 12:46] LABS: ALK PHOS 68 U/L (45-117)
[2022-09-28 12:47] LABS: HDL CHOLESTEROL 64 mg/dL (40-60)
[2022-09-28] MEDS ORDERED: ACETAMINOPHEN INJECTION 100 ML IVPB ONE (13:52)
[2022-09-28] MEDS ORDERED: ACETAMINOPHEN 1000 MG/100 ML BAG IVPB ONE (14:11)
[2022-09-28] MEDS ORDERED: KETOROLAC TROMETHAMINE 15 MG/ML VIAL IVPUSH ONE (15:24)
[2022-09-28] MEDS ORDERED: KETOROLAC TROMETHAMINE 15 MG/ML VIAL ONE (15:34)
[2022-09-28] MEDS ORDERED: KETOROLAC TROMETHAMINE 15 MG/ML VIAL IVPUSH PRN (18:48)
[2022-09-28] MEDS ORDERED: ACETAMINOPHEN 325 MG TABLET (FP) PO PRN (18:48)
[2022-09-29] MEDS ORDERED: LEVOTHYROXINE NA 75 MCG TABLET (FP) ONE (06:57)
[2022-09-29] MEDS ORDERED: LEVOTHYROXINE NA 150 MCG TABLET PO SCH (07:00)
[2022-09-29 07:48] VITALS: TEMP 97.9
[2022-09-29 09:43] LABS: BASO % 0.3 % (0-2.0); HEMATOCRIT 38.1 % (32.4-45.2); HEMOGLOBIN 12.8 GM/dL (10.7-15.3); LYMPH % 21.5 % (8-40); MCH 29.6 pg (25.7-33.7); MCHC 33.5 g/dl (32.0-36.0); MEAN CELL VOLUME 88.5 fl (80-96); MEAN PLT VOLUME 8.8 fl (7.5-11.1); MONO % 6.9 % (3.8-10.2); NEUT % 70.3 % (42.8-82.8); PLATELET COUNT 320 10^3/uL (134-434); RDW 14.1 % (11.6-15.6); WHITE BLOOD COUNT 8.4 K/mm3 (4.0-10.0)
[2022-09-29 09:52] VITALS: BP 94/58; PULSE 68; RESP 17
[2022-09-29 10:37] LABS: ALBUMIN 3.3 g/dl (3.4-5.0); BLOOD UREA NITROGEN 10.1 mg/dL (7-18); CALCIUM 9.1 mg/dL (8.5-10.1); MAGNESIUM 2.2 mg/dL (1.8-2.4)
[2022-09-29 10:39] LABS: CREATININE 0.8 mg/dL (0.55-1.3); PHOSPHOROUS 3.3 mg/dL (2.5-4.9)
[2022-09-29 10:43] LABS: TOT PROT 6.6 g/dl (6.4-8.2)
[2022-09-30] MEDS ORDERED: LEVOTHYROXINE 112 MCG, LEVOTHYROXINE 25 MCG PO SCH (07:00)
== END 2022-09-29 12:28 | disposition home or self-care (01) ==
LOC: JER 11:05 → JERBED 14:14
PROVIDERS: ADMIT Internal Medicine
PROC: 3E033NZ Introduction of Analgesics, Hypnotics, Sedatives into Peripheral Vein, Percutaneous Approach (ICD-10-PCS; principal; 2022-09-28)
PROC: 3E033GC Introduction of Other Therapeutic Substance into Peripheral Vein, Percutaneous Approach (ICD-10-PCS; 2022-09-28)
PROC: 3E0333Z Introduction of Anti-inflammatory into Peripheral Vein, Percutaneous Approach (ICD-10-PCS; 2022-09-28)
PROC: 3E0337Z Introduction of Electrolytic and Water Balance Substance into Peripheral Vein, Percutaneous Approach (ICD-10-PCS; 2022-09-28)
DX: E03.9 Hypothyroidism, unspecified (principal); Z86.73 Personal history of transient ischemic attack (TIA), and cerebral infarction without residual deficits; G43.909 Migraine, unspecified, not intractable, without status migrainosus; Z29.8 Encounter for other specified prophylactic measures; Z88.8 Allergy status to other drugs, medicaments and biological substances
CPT/HCPCS: 0241U-QW; 36415; 70450-TC; 70496-TC; 70498-TC; 70551-TC; 80053; 80061; 82550; 82607; 82746; 82962; 83036; 83735; 84100; 84443; 84484; 84702; 85025; 85610; 85730; 86850; 86900; 86901; 93005; 93010; 96361; 96374; 96375; 99285-25; G0378; Q9967

== ENCOUNTER 2023-09-11 18:43 | Emergency (ER) | payer OTHER ==
[2023-09-11 18:59] VITALS: BP 138/77; PULSE 58; RESP 18; TEMP 98; BMI 25.0
[2023-09-11] MEDS ORDERED: LIDOCAINE HCL 2% JELLY 10 ML CARTRIDGE PR ONE (20:10)
[2023-09-11 20:48] LABS: PH,URINE 7.5 (5.0-8.0); URINE APPEARANCE CLEAR; URINE BILIRUBIN NEGATIVE (NEGATIVE); URINE COLOR YELLOW; URINE GLUCOSE (UA) NEGATIVE (NEGATIVE); URINE KETONE NEGATIVE (NEGATIVE); URINE LEUK ESTERASE NEGATIVE (NEGATIVE); URINE NITRITE NEGATIVE (NEGATIVE); URINE PROTEIN NEGATIVE (NEGATIVE); URINE UROBILINOGEN 0.2 mg/dL (0.2-1.0)
[2023-09-11 21:22] LABS: HEMATOCRIT 41.4 % (32.4-45.2); HEMOGLOBIN 13.9 GM/dL (10.7-15.3); MCH 29.7 pg (25.7-33.7); MCHC 33.6 g/dl (32.0-36.0); MEAN CELL VOLUME 88.3 fl (80-96); MEAN PLT VOLUME 9.3 fl (7.5-11.1); PLATELET COUNT 249 10^3/uL (134-434); RBC 4.69 M/mm3 (3.60-5.2); RDW 14.8 % (11.6-15.6); WHITE BLOOD COUNT 10.2 K/mm3 (4.0-10.0)
[2023-09-11 21:48] LABS: POTASSIUM 3.6 mmol/L (3.5-5.1)
[2023-09-11 21:51] LABS: ALBUMIN 3.8 g/dl (3.4-5.0); BLOOD UREA NITROGEN 11.2 mg/dL (7-18); CALCIUM 8.8 mg/dL (8.5-10.1)
[2023-09-11 21:54] LABS: CREATININE 0.8 mg/dL (0.55-1.3)
[2023-09-11 21:55] LABS: BILIRUBIN,TOTAL 0.4 mg/dL (0.2-1); TOT PROT 7.2 g/dl (6.4-8.2)
[2023-09-11] MEDS ORDERED: TAMSULOSIN HCL 0.4 MG CAP PO ONE (22:33)
[2023-09-11] MEDS ORDERED: TAMSULOSIN HCL 0.4 MG CAP ONE (22:48)
== END 2023-09-11 23:01 | disposition home or self-care (01) ==
LOC: JER 18:43
DX: M54.50 Low back pain, unspecified (principal); R10.30 Lower abdominal pain, unspecified; R33.9 Retention of urine, unspecified
CPT/HCPCS: 36415; 74176-TC; 80053; 81003; 84703; 85027; 87086; 99284-25

== ENCOUNTER 2023-12-18 16:10 | Emergency (ER) | payer OTHER ==
[2023-12-18 16:39] VITALS: BP 131/60; PULSE 63; RESP 18; TEMP 97.7; BMI 25.1
[2023-12-18] MEDS ORDERED: ONDANSETRON 4 MG/2 ML VIAL ONE (19:06)
[2023-12-18] MEDS ORDERED: ACETAMINOPHEN INJECTION 100 ML IVPB ONE (19:06)
[2023-12-18] MEDS: ONDANSETRON 4 MG/2 ML VIAL IVPUSH ONE (19:14)
[2023-12-18] MEDS: ACETAMINOPHEN 1000 MG/100 ML BAG IVPB ONE (19:14)
[2023-12-18] MEDS: SODIUM CHLORIDE 0.9% 500 ML INFUS.BAG IV ONE (19:14)
[2023-12-18 19:36] LABS: BASO % 0.4 % (0-2.0); EOS % 1.9 % (0-4.5); HEMATOCRIT 41.7 % (32.4-45.2); HEMOGLOBIN 13.8 GM/dL (10.7-15.3); LYMPH % 34.3 % (8-40); MCH 29.9 pg (25.7-33.7); MCHC 33.1 g/dl (32.0-36.0); MEAN CELL VOLUME 90.2 fl (80-96); MEAN PLT VOLUME 9.5 fl (7.5-11.1); MONO % 6.4 % (3.8-10.2); PLATELET COUNT 246 10^3/uL (134-434); RBC 4.63 M/mm3 (3.60-5.2); RDW 14.3 % (11.6-15.6); WHITE BLOOD COUNT 8.3 K/mm3 (4.0-10.0)
[2023-12-18 19:39] LABS: PH,URINE 6.5 (5.0-8.0); URINE APPEARANCE CLEAR; URINE BILIRUBIN NEGATIVE (NEGATIVE); URINE COLOR YELLOW; URINE GLUCOSE (UA) NEGATIVE (NEGATIVE); URINE KETONE NEGATIVE (NEGATIVE); URINE LEUK ESTERASE NEGATIVE (NEGATIVE); URINE NITRITE NEGATIVE (NEGATIVE); URINE PROTEIN NEGATIVE (NEGATIVE); URINE UROBILINOGEN 0.2 mg/dL (0.2-1.0)
[2023-12-18 19:41] LABS: HCG,QUALITATIVE URINE Negative
[2023-12-18 20:05] LABS: POTASSIUM 4.6 mmol/L (3.5-5.1)
[2023-12-18 20:08] LABS: CALCIUM 9.5 mg/dL (8.5-10.1)
[2023-12-18 20:09] LABS: ALBUMIN 3.9 g/dl (3.4-5.0); BLOOD UREA NITROGEN 14.2 mg/dL (7-18)
[2023-12-18 20:12] LABS: CREATININE 0.8 mg/dL (0.55-1.3)
[2023-12-18 20:13] LABS: TOT PROT 7.6 g/dl (6.4-8.2)
[2023-12-18 20:14] LABS: BILIRUBIN,TOTAL 0.6 mg/dL (0.2-1)
== END 2023-12-18 22:11 | disposition home or self-care (01) ==
LOC: JER 16:10
PROC: 3E033NZ Introduction of Analgesics, Hypnotics, Sedatives into Peripheral Vein, Percutaneous Approach (ICD-10-PCS; principal; 2023-12-18)
PROC: 3E033GC Introduction of Other Therapeutic Substance into Peripheral Vein, Percutaneous Approach (ICD-10-PCS; 2023-12-18)
DX: R10.33 Periumbilical pain (principal); R10.30 Lower abdominal pain, unspecified; R10.2 Pelvic and perineal pain; R14.0 Abdominal distension (gaseous); Z20.822 Contact with and (suspected) exposure to COVID-19
CPT/HCPCS: 0241U-QW; 36415; 74177-TC; 76830-TC; 80053; 81003; 84703; 85025; 87086; 99285-25; J0131; Q9967